=== PATIENT | male | born 1955 | race Caucasian/White ===

== ENCOUNTER 2017-08-02 22:33 | Inpatient (IN) | payer OTHER ==
[~2017-08-02] VITALS: Ht 180.3 cm; Wt 107.5 kg
[2017-08-02 22:40] VITALS: BP 116/79
[2017-08-02] MEDS ORDERED: ORE25 PO (22:48)
[2017-08-02] MEDS ORDERED: AMLO-143 PO (22:48)
[2017-08-02] MEDS ORDERED: WARF3TAB PO (22:48)
--- NOTE | 2017-08-02 23:55 | NUR ---
62Y M BIB SELF C/O CONSTIPATON/CONDOM CATH LEAKING. PT STATE HE HAD HOME HEALTH AID COME AND CARE FOR PT BUT SINCE HIS INSURANCE HAS BEEN CANCELED, NO AID HAD BEEN ARRIVING. PT C/O LEAKING CONDOM CATH, CONDOM CATH WAS CHANGED IN THE ED. PT DOES NOT WANT A INDWELLING URINARY CATHETER PLACED IN PT, ONLY CONDOM CATH. PT CHANGED INTO HOSPITAL GOWN, NO WOUNDS WERE NOTED ON SKIN ASSESSMENT. ER MD DR ROYAL MADE AWARE. 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
[2017-08-03 00:29] LABS: HEMOGLOBIN 17.4 g/dL (12.0-18.0); MEAN CORPUSCULAR HEMOGLOBIN 30 pg (27-31)
[2017-08-03 00:32] LABS: BASOPHILS # (AUTO) 0.3 K/uL (0.00-0.22); BASOPHILS % (AUTO) 2.5 % (0.0-2.0); EOSINOPHILS # (AUTO) 0.2 K/uL (0-0.4); EOSINOPHILS % (AUTO) 1.2 % (0.0-4.0); HEMATOCRIT 51.5 % (36-52); LYMPHOCYTES # (AUTO) 2.2 K/uL (2.0-11.5); LYMPHOCYTES % (AUTO) 17.4 % (20.5-51.1); MEAN CORPUSCULAR HGB CONC 34 g/dL (33-37); MEAN CORPUSCULAR VOLUME 89 fL (80-94); MONOCYTES # (AUTO) 0.7 K/uL (0.8-1.0); MONOCYTES % (AUTO) 5.7 % (1.7-9.3); NEUTROPHILS # (AUTO) 9.4 K/uL (1.8-7.7); NEUTROPHILS % (AUTO) 73.2 % (42.2-75.2); PLATELET COUNT (AUTO) 280 K/uL (140-450); RED BLOOD CELL COUNT(AUTO) 5.77 MIL/uL (4.20-6.10); RED CELL DISTRIBUTION WIDTH 12.5 % (11.6-13.7); WHITE BLOOD COUNT (AUTO) 12.8 K/uL (4.8-10.8)
[2017-08-03 00:37] LABS: APPEARANCE,URINE CLOUDY (CLEAR); BILIRUBIN,URINE NEGATIVE (NEGATIVE); BLOOD, URINE NEGATIVE (NEGATIVE); COLOR,URINE YELLOW (YELLOW); LEUKOCYTE ESTERASE ,URINE NEGATIVE (NEGATIVE); NITRITE, URINE NEGATIVE (NEGATIVE); PH,URINE 8.5 (5.0-9.0); UGLUCOSE NEGATIVE (NEGATIVE)
[2017-08-03 00:41] LABS: ANION GAP 14.3 (8-16); CARBON DIOXIDE 27.3 mmol/L (21-32); CREATININE 0.5 mg/dL (0.7-1.3); POTASSIUM 3.6 mmol/L (3.5-5.1)
[2017-08-03 00:48] LABS: RBC,URINE 0-5 (RARE) /HPF (0-5); WBC,URINE 0-5 (RARE) /HPF (0-5)
[2017-08-03 00:49] LABS: TRIPLE PHOSPHATE CRYSTAL,UR 70-100 /HPF (None Seen)
[2017-08-03 00:49] LABS: ALBUMIN 3.5 g/dL (3.4-5.0); TOTAL BILIRUBIN 0.5 mg/dL (0.0-1.0)
[2017-08-03] MEDS ORDERED: KETOROLAC 30 MG/ML VIAL IVP ONE (00:55)
[2017-08-03] MEDS: LEVOFLOXACIN 500 MG/D5W PREMIX 100 ML IV ONE (00:55)
[2017-08-03] MEDS ORDERED: NACL 0.9% 1,000 ML IV ONE (00:55)
[2017-08-03] MEDS ORDERED: NACL 0.9% 2,500 ML IV ONE (01:05)
--- NOTE | 2017-08-03 01:30 | NUR ---
PT VERBALIZES REFUSAL OF IV TREATMENT, PT STATES HE IS A DNR, AND DOES NOT WANT IV TREATMENT. PT WAS EXPLAINED THE RISK AND BENEFITS OF IV THERAPY AND IV ABX BUT PT STILL REFUSED. PT IS ALERT AND APPROPRIATE AND RESPONDS VERBALLY TO ALL QUESTIONS APPROPRIATELY. PT WAS ADVISED THAT PT LACTIC ACID AND WBC WAS ELEVATED AND IS RELATED TO HIS INFECTION, PAIN, AND WELL-BEING, BUT PT CONTINUES TO REFUSE MEDICAL TX AT THIS TIME. DR ROYAL IS INFORMED OF PT DECISION, DR ROYAL WILL SEE PT AND DISCUSS FURTHER TX IF NECESSARY.
--- NOTE | 2017-08-03 01:45 | NUR ---
DNR COMPLETED BY DR ROYAL. PLACED IN PT CHART
[2017-08-03] MEDS ORDERED: NACL 0.9% 1,000 ML IV SCH (01:51)
[2017-08-03] MEDS ORDERED: MORPHINE SULFATE 2 MG/ML SYR IVP PRN (01:55)
[2017-08-03] MEDS ORDERED: DOCUSATE SODIUM 100 MG GELCAP PO PRN (01:55)
[2017-08-03] MEDS ORDERED: ONDANSETRON 4 MG/2 ML VIAL IM/IVP PRN (01:55)
[2017-08-03] MEDS ORDERED: ACETAMINOPHEN 325 MG TAB PO PRN (01:55)
[2017-08-03 02:15] VITALS: BP 144/82
--- NOTE | 2017-08-03 02:15 | NUR ---
Admitted from ER, with chief complaint of CONSTIPATION X4 DAYS; TAILBONE PAIN. 62 y/o, Male, Uncooperative, AOX4, QUADRIPLEGIC, BEDBOUND/WHEELCHAIR BOUND, ABLE TO VERBALIZE NEEDS. CANT GANG SAWYER IN PLACE. CONDOM CATH IN PLACE, DRAINING WELL. EDEMA NOTED ON HANDS. PT REFUSED IV TREATMENT AND IV ABX DESPITE EDUCATION, DR POTTS AT BEDSIDE, MD AWARE. ALL PT'S BELONGINGS, ELECTRONICS AND WHEELCHAIR AT BEDSIDE WITH PT. oriented to call light, bed, phone,television, bathroom, smoking policy, visiting hours, procedures, ID bracelet on. Belongings list checked. DISCUSSED AND REVIEWED PLAN OF CARE WITH PT, PT UNCOOPERATIVE, WILL NEED TO CONTINUE WITH CONSTANT REINFORCEMENT. ALL NEEDS MET. SAFETY MEASURES ENSURED. CALL LIGHT WITHIN REACH.
--- NOTE | 2017-08-03 02:20 | NUR ---
Patient will be admitted to care of DR. SHAH. Admited to TELE FLOOR. Will go to room 124A . Belongings list completed. Report to OFELIA LINDQUIST.
[2017-08-03 02:25] LABS: BARBITURATE, URINE NEG. ng/ml (NEG <=200); BENZODIAZEPINE, URINE NEG. ng/mL (NEG <=200); CANNABINOID, URINE NEG. ng/mL (NEG <=50); COCAINE, URINE NEG. ng/mL (NEG <=300); OPIATE, URINE NEG. ng/mL (NEG <=2000); PHENCYCLIDINE SCREEN,URINE NEG. ng/mL (NEG <=25)
[2017-08-03 02:34] LABS: CHOL/HDL RATIO 6.2 (1-4.5); HDL CHOLESTEROL 37 mg/dL (40-60); LDL (CALC) 110 mg/dL (60-100); MAGNESIUM 1.9 mg/dL (1.8-2.4); PHOSPHORUS 3.4 mg/dL (2.5-4.9); THYROID STIMULATING HORMONE 0.74 uIU/mL (0.34-3.74); TRIGLYCERIDES 414 mg/dL (30-150)
[2017-08-03] MEDS: MENTHOL/METHYL 10%-15% 114 GM TUBE TP SCH ×3 (02:40→21:00)
[2017-08-03] MEDS ORDERED: BISACODYL 10 MG SUPP RC SCH (02:47)
[2017-08-03] MEDS ORDERED: ECOTRIN 81 MG TABEC PO ONE (02:50)
[2017-08-03] MEDS: guaiFENesin 600 MG TABER PO SCH ×2 (03:24→21:43)
--- NOTE | 2017-08-03 03:24 | NUR ---
PT AGREED TO TAKE DUE MED MUCINEX PO WITH EDUCATION AND DULCOLAX SUPPOSITORY. PT VERBALIZED UNDERSTANDING, TOLERATED MEDS WELL. PT REFUSED TO TAKE NORCO PRN DUE TO CONSTIPATION AND TYLENOL PO STATING THAT IT DOES NOT WORK FOR HIM. PT TURNED AND REPOSITIONED FOR COMFORT, PER DR POTTS, IT IS OK TO GIVE PT'S OWN BENGAY. ALL NEEDS MET. SAFETY MEASURES ENSURED. CALL LIGHT WITHIN REACH.
--- NOTE | 2017-08-03 03:30 | NUR ---
PT REFUSED TO TAKE REMAINING DUE PO MEDS, STATING "I NEED SOMETHING IN STOMACH, I GET NAUSEOUS." PT'S REQUEST TUNA SANDWICH UNABLE AT THIS TIME IN KITCHEN PER NANOTECHNOLOGIST. OFFERED CHICKEN/TURKEY/HAM SANDWICH/JELLO/PUDDING, PT REFUSED, STATING "NO, JUST LET ME SLEEP." CALLED DR POTTS, MADE AWARE.
[2017-08-03] MEDS ORDERED: PSEUDOEPHEDRINE 30 MG TAB ONE (03:47)
[2017-08-03] MEDS ORDERED: LEVOFLOXACIN 500 MG TAB PO SCH ×2 (04:00→09:00)
[2017-08-03] MEDS ORDERED: FUROSEMIDE 40 MG TAB PO SCH (04:00)
[2017-08-03] MEDS: PSEUDOEPHEDRINE 30 MG TAB PO SCH ×3 (04:55→21:43)
--- NOTE | 2017-08-03 05:00 | NUR ---
PT AGREED TO TAKE DUE PO MEDICATION WITH EDUCATION, FED PT WITH KARLO AT THIS TIME. PT YELLING IN PAIN, STATING THAT THE SUPPOSITORY DID NOT WORK, YELLING THAT "I NEED ENEMA." CALLED DR POTTS, MADE AWARE THAT PT WAS ABLE TO TAKE PO MEDS AND PT IS REQUESTING FOR ENEMA DUE TO NOT BEING ABLE TO HAVE BM AFTER SUPPOSITORY. ORDERS PENDING, WILL CARRY OUT.
[2017-08-03] MEDS ORDERED: SODIUM PHOSPHATE 118 ML ENEM RC SCH ×2 (05:35→11:30)
--- NOTE | 2017-08-03 05:40 | NUR ---
PT ABLE TO HAVE SMALL SOFT BROWN BM AT THIS TIME. ADMINISTERED FLEET ENEMA ORDERED. PT REFUSED TO BE CLEANED OR TURNED AT THIS TIME, PT STATED "I DON'T WANT TO BE CLEANED RIGHT NOW, I KNOW I'M GOING TO KEEP GOING, JUST LEAVE ME ALONE, LET ME SLEEP. I'LL CALL WHEN I WANT TO BE CLEANED." ALL NEEDS MET. SAFETY MEASURES ENSURED.
[2017-08-03] MEDS ORDERED: CLINDAMYCIN 150 MG CAP PO SCH (06:00)
--- NOTE | 2017-08-03 07:30 | NUR ---
ENDORSED PLAN OF CARE TO AM NURSE. CONDITION STABLE.
--- NOTE | 2017-08-03 07:50 | NUR ---
ENDORSEMENT RECEIVED FROM AIRCRAFT ENGINE INSTALLER NURSE. PATIENT IS AWAKE, ALERT. RESPIRATION EVEN, UNLABOR ON ROOM AIR. SKIN DRY AND WARM. NO IV DUE TO PATIENT'S REFUSAL PER AIRCRAFT ENGINE INSTALLER. CONDOM CATH IS DRAINING WELL. PATIENT WAS TURNED AND CLEANED. PLAN OF CARE WAS DISCUSSED WITH PATIENT. BED AT LOW POSITION, CALL LIGHT WITHIN REACH, SIDE RAILS UP
[2017-08-03 08:00] VITALS: BP 150/89
--- NOTE | 2017-08-03 08:20 | NUR ---
PATIENT REQUESTED TO BE PLACED IN WHEELCHAIR WITH JEANNE LIFT, WILL NOTIFY MD FOR PT EVAL.
--- NOTE | 2017-08-03 08:58 | NUR ---
PATIENT HAS BEEN SCREENED AND CATEGORIZED HIGH NUTRITION RISK. PATIENT WILL BE SEEN WITHIN 1-2 DAYS OF ADMISSION. 08/03/17-08/04/[address]
[2017-08-03] MEDS ORDERED: ASPIRIN 81 MG TAB.CHEW PO SCH (09:00)
[2017-08-03] MEDS: LACTOBACILLUS RHAMNOSUS GG 1 EACH CAP PO SCH (09:00)
[2017-08-03] MEDS: FUROSEMIDE 20 MG TAB PO SCH (09:00)
[2017-08-03] MEDS: ATORVASTATIN 20 MG TAB PO SCH (09:00)
[2017-08-03] MEDS ORDERED: ATORVASTATIN 20 MG TAB PO SCH (09:00)
--- NOTE | 2017-08-03 09:00 | NUR ---
PATIENT REFUSED TO TAKE MEDS, STATED HE WAS TOO TIRED, AND JUST WANTED TO SLEEP.
[2017-08-03] MEDS ORDERED: LEVOFLOXACIN 750 MG/D5W PREMIX 150 ML IV SCH (10:00)
[2017-08-03] MEDS ORDERED: diphenhydrAMINE 50 MG/ML VIAL IVP ONE (10:05)
[2017-08-03] MEDS ORDERED: HYDRAGUARD CREAM TP PRN (10:05)
[2017-08-03] MEDS ORDERED: amLODIPine 5 MG TAB PO SCH (11:00)
[2017-08-03 12:00] VITALS: BP 134/84
[2017-08-03] MEDS: CLINDAMYCIN 150 MG CAP PO SCH ×3 (12:00→23:55)
--- NOTE | 2017-08-03 12:00 | NUR ---
PATIENT REFUSED TO TAKE MEDS, STATED HIS STOMACH IS SICK. RISKS WERE EXPLAINED TO THE PATIENT.
[2017-08-03] MEDS ORDERED: HYDROCORTISONE 1% OINT 30 GM TUBE TP PRN (12:30)
--- NOTE | 2017-08-03 13:30 | NUR ---
PATIENT WAS TURNED, CLEANED, BM X1 LARGE AMOUNT
[2017-08-03 15:36] VITALS: BP 130/78
--- NOTE | 2017-08-03 15:36 | NUR ---
CM NOTE INITIAL REVIEW FAXED TO [facility] (FAX# [phone]) AND [facility] (FAX# [phone], C: [phone])
--- NOTE | 2017-08-03 16:00 | NUR ---
PATIENT WAS TURNED TO LEFT LATERAL, AND CLEANED. PATIENT STATED "HE WANTED TO WATCH TV, AND HE WANTED TO SWITCH BACK TO REGULAR CALL LIGHT", EXPLAINED TO THE PATIENT THAT MAINTENANCE NEEDED TO BE CALLED, PATIENT BECAME AGITATED AND STARTED SCREAMING AT STAFF.
[2017-08-03] MEDS: WARFARIN 1 MG TAB PO SCH (17:00)
--- NOTE | 2017-08-03 17:15 | NUR ---
PATIENT WAS PLACED ON THE WHEELCHAIR VIA JEANNE LIFT. PATIENT WAS AGITATED, STATED " THE SLEEVE IS NOT THE RIGHT SIZE, I WILL HAVE TO LEAVE TOMORROW IF YOU GUYS CANNOT GET IT RIGHT". EXPLAINED TO THE PATIENT REGARDING THE EQUIPMENT USE.
--- NOTE | 2017-08-03 18:04 | NUR ---
PATIENT COMPLAINED OF HIS WHEELCHAIR NOT WORKING AND REQUESTING MAINTENANCE. EXPLAINED TO THE PATIENT THAT THE HOSPITAL STAFF ARE NOT ALLOWED TO FIX PERSONAL WHEELCHAIR. PATIENT STARTED TO SCREAM AT STAFF, REQUESTING TO LEAVE AMA TOMORROW. Addendum: 08/03/17 at 1807 by Jennie Santacruz RN PATIENT ALSO REFUSED TO TAKE HIS MEDS, AND STATED " I AM NOT TAKING ANYTHING UNTIL MY WHEELCHAIR IS FIXED"
--- NOTE | 2017-08-03 18:45 | NUR ---
CELL PHONE AND OCCUPATIONAL HEALTH NURSE WERE BROUGHT TO THE PATIENT UPON REQUEST. OFFERED TO CALL THE FAMILY FOR THE PATIENT, BUT PATIENT REFUSED. PATIENT STATED "CALL POLICE, CALL FIRE DEPARTMENT, CALL PARAMEDICS TO COME AND FIX THE WHEELCHAIR AND GET ME OUT OF HERE". PATIENT VERBALIZED "I WANT TO BE DISCHARGED EARLY TOMORROW MORNING".
--- NOTE | 2017-08-03 19:23 | NUR ---
ENDORSEMENT GIVEN TO THE MANAGER RAIL NURSE. PATIENT IS STABLE AT THIS TIME.
--- NOTE | 2017-08-03 19:35 | NUR ---
RECEIVED REPORT FROM AM NURSE. PT IS AOX4, QUADRIPLEGIC, BEDBOUND/WHEELCHAIR BOUND, ABLE TO VERBALIZE NEEDS. LICENSED OPTICAL DISPENSER IN PLACE. CONDOM CATH IN PLACE, DRAINING CLEAR DERRICK URINE WELL. EDEMA NOTED ON HANDS AND BLE. ALL PT'S BELONGINGS, ELECTRONICS AND WHEELCHAIR AT BEDSIDE WITH PT. DISCUSSED AND REVIEWED PLAN OF CARE WITH PT, PT UNCOOPERATIVE AT TIMES, WILL NEED TO CONTINUE WITH CONSTANT REINFORCEMENT. PT IS CURRENTLY IN HIS ELECTRONIC WHEELCHAIR AT THIS TIME, ASSISTED PT TO FIX WHEELCHAIR MOBILITY, PT POSITIONED FOR COMFORT, PT IS NOW ABLE TO ROAM AROUND IN HOSPITAL HALLWAYS INDEPENDENTLY WITH STANDBY ASSIST. ALL NEEDS MET. SAFETY MEASURES ENSURED.
[2017-08-03 20:00] VITALS: BP 127/85
--- NOTE | 2017-08-03 20:00 | NUR ---
PT STATED THAT HE WILL GO AMA AT 5AM IN THE MORNING, MD AWARE. DISCUSSED WITH PT IF HE WANTS TO CALL HIS BROTHER, PT STATED "NO, I DON'T WANT TO CALL HIM, I CAN MAKE MY OWN DECISIONS." ASKED HOW PT WILL GO HOME, PT STATED "I'LL TAKE THE BUS." WILL NOTIFY MD.
--- NOTE | 2017-08-03 21:43 | NUR ---
PT AGREED TO TAKE DUE MEDS SUDAFED PO AND MUCINEX PO. PT VERBALIZED UNDERSTANDING, TOLERATED MEDS WELL. PT WAS ALSO FED BY PRODUCE WRAPPER WITH CHALINO LUCERO. UNABLE TO PLACE PT BACK TO BED AT THIS TIME DUE JEANNE LIFT NOT CHARGED. PT UPSET AND C/O PAIN AT THIS TIME DESPITE REASSURANCE THAT PT WILL BE PLACED BACK TO BED WHEN JEANNE LIFT IS CHARGED, PT POSITIONED FOR COMFORT. Addendum: 08/04/17 at 0317 by Ken Turner RN ASSISTED PT WITH ORAL CARE
--- NOTE | 2017-08-03 22:30 | NUR ---
PLACED PT BACK TO BED USING JEANNE LIFT WITH CNAs. PT CLEANED, TURNED AND REPOSITION FOR COMFORT, OFFLOADED PRESSURE AREAS BY CNAs. PT TOLERATED WELL. ALL NEEDS MET. SAFETY MEASURES ENSURED. CALL LIGHT BUTTON WITHIN HEAD'S REACH.
[2017-08-03] MEDS: HYDROcodone/APAP 7.5/325 MG 1 TAB PO PRN (23:56)
[2017-08-04] VITALS (7 sets, daily range): BP systolic 117–163; BP diastolic 60–101
--- NOTE | 2017-08-04 00:01 | NUR ---
PT C/O BACK PAIN, PT AGREED TO TAKE NORCO PO PRN WITH EDUCATION. ADMINISTERED REMAINING DUE MED CLEOCIN PO WITH EDUCATION. ASSISTED PT TO DRINK MORE WATER. PT TURNED AND REPOSITIONED FOR COMFORT, OFFLOADED PRESSURE AREAS. APPLIED PT'S BENGAY TO BACK AND HIPS, DR POTTS AWARE AND OK TO GIVE. ALL NEEDS MET. SAFETY MEASURES ENSURED. CALL LIGHT BUTTON WITHIN HEAD'S REACH.
--- NOTE | 2017-08-04 02:00 | NUR ---
PT TURNED AND REPOSITIONED FOR COMFORT, OFFLOADED PRESSURE AREAS. PT C/O ITCHING, APPLIED HYDROCORTISONE CREAM TO PT'S NOSE. ALL NEEDS MET. SAFETY MEASURES ENSURED. CALL LIGHT BUTTON WITHIN HEAD'S REACH.
--- NOTE | 2017-08-04 04:05 | NUR ---
PT TURNED AND REPOSITIONED FOR COMFORT, OFFLOADED PRESSURE AREAS. ALL NEEDS MET. SAFETY MEASURES ENSURED. CALL LIGHT BUTTON WITHIN HEAD'S REACH.
[2017-08-04] MEDS: CLINDAMYCIN 150 MG CAP PO SCH ×4 (06:30→23:45)
--- NOTE | 2017-08-04 06:30 | NUR ---
ADMINISTERED DUE MED CLEOCIN PO WITH EDUCATION. PT UNCOOPERATIVE BUT AGREED TO TAKE MEDS. PT TURNED AND REPOSITIONED FOR COMFORT, OFFLOADED PRESSURE AREAS. CONDOM CATH REPLACED. ALL NEEDS MET. SAFETY MEASURES ENSURED. CALL LIGHT BUTTON WITHIN HEAD'S REACH.
--- NOTE | 2017-08-04 07:20 | NUR ---
Patient is quadriplegic. +1 pitting edema noted to BLE. No IV in place, patient refused to have line in place. Skin is intact. Condom catheter in place draining clear, yellow urine. Patient is on tele monitoring, bed in low position, call light within reach. Will continue to monitor.
--- NOTE | 2017-08-04 07:20 | NUR ---
ENDORSED PLAN OF CARE TO AM NURSE. CONDITION STABLE.
--- NOTE | 2017-08-04 07:20 | NUR ---
Received patient report at bedside. Patient awake and alert with no s/s of distress. Patient on RA no SOB.
--- NOTE | 2017-08-04 08:00 | NUR ---
Patient turned and repositioned for comfort.
--- NOTE | 2017-08-04 08:30 | NUR ---
PLAN TO HAVE SKIN ASSESSMENT DUE TO LOW SAMMIE SCORE. PT IS AGITATED AND EXPLAINED RISK AND BENEFITS FOR PRESSURE ULCER PREVENTION, PT. ONLY WANT WOUND CARE NURSE TO PLACE HAND ROLLS TO BOTH HANDS WHICH DONE BY WOUND CARE NURSE TO BOTH HANDS AND RIGHT HAND WAS ELEVATED WITH A PILLOW PER PT REQUEST. WHILE REAPPLY HEEL RAISERS TO BILATERAL HEELS PT . STARTED TO COMPLAIN THAT THE DEVICES IS NOT HELPING AND REFUSED TO WEAR IT, RISK AND BENEFITS EXPLAINED AGAIN AND PT DISAGREE WITH IT. PUMP PROVIDED FOR PRESSURE REDISTRIBUTION SURFACE THERAPY, PT STATED " I DON'T NEED IT. IT HURT MY BACK" RISK AND BENEFITS EXPLAINED AGAIN FOR THE 3RD TIMES. AND PT SHOUT IT OUT LOUD " YOU GUYS ARE NOT DOING THINGS RIGHT HERE, THE CALL LIGHTS WAS SO LOUD ALL NIGHT LONG, I WANT TO SIGN AMA", EXPLAINED TO PT THIS IS A HOSPITAL, OTHER PT. USE CALL LIGHTS TO ASK FOR HELP. ABOVE INFORMATION REPORT TO CN.
[2017-08-04] MEDS: HYDRAGUARD CREAM TP SCH (09:00)
[2017-08-04] MEDS: ATORVASTATIN 20 MG TAB PO SCH ×2 (09:00→09:19)
[2017-08-04] MEDS: MENTHOL/METHYL 10%-15% 114 GM TUBE TP SCH ×2 (09:00→20:57)
[2017-08-04] MEDS: FUROSEMIDE 20 MG TAB PO SCH (09:15)
[2017-08-04] MEDS: LACTOBACILLUS RHAMNOSUS GG 1 EACH CAP PO SCH (09:16)
[2017-08-04] MEDS: amLODIPine 5 MG TAB PO SCH (09:16)
[2017-08-04] MEDS: LEVOFLOXACIN 750 MG TAB PO SCH (09:17)
[2017-08-04] MEDS: HYDROCHLOROTHIAZIDE 25 MG TAB PO SCH (09:17)
[2017-08-04] MEDS: guaiFENesin 600 MG TABER PO SCH ×2 (09:18→20:55)
[2017-08-04] MEDS: PSEUDOEPHEDRINE 30 MG TAB PO SCH ×2 (09:24→20:55)
--- NOTE | 2017-08-04 10:00 | NUR ---
Patient turned and repositioned for comfort.
--- NOTE | 2017-08-04 11:09 | NUR ---
ENTRY FOR 08/03/17 1200 PT'S BROTHER KIMMY PROVIDED INFORMATION ON A FACILITY WHO HAD BEEN WORKING WITH PT FOR PLACEMENT. PLACED CALL TO [facility] [phone] AND SPOKE WITH CARLITO WHO IDENTIFIED HIMSELF THE JUNIOR ACCOUNTANT BOOKKEEPER OF THE FACILITY. CARLITO STATED THAT THE FACILITY IS A 6 BED [facility]. STATED THAT HE HAD BEEN ASSISTING PT FOR ADMISSION TO THE FACILITY AND HAD BEEN SPEAKING WITH [facility] ON PTS BEHALF TO OBTAIN A LETTER OF AGREEMENT TO ADMIT PT. STATED THE PROCESS WAS STOPPED WHEN PT WAS DISCHARGED FROM [facility]. 1230 MET WITH PT AT BEDSIDE AND DISCUSSED HIS PLAN FOR DISCHARGE IF A LETTER OF AGREEMENT CANNOT BE DONE AND HE INSISTED THAT [facility] WOULD PAY FOR THE FACILITY. EXPLAINED TO HIM THAT AT THIS TIME HIS NEEDS WOULD BE FDC AND THAT IF [facility] DID NOT DO AN KAYA HE MAY NEED TO GO TO SNF AND THAT [facility] IS MCAL IN [facility]. PT INSISTED THAT THIS INDUSTRIAL RELATIONS COUNSELOR COULD JUST CALL AND HAVE HIS MCAL CHANGED TO [facility]. EXPLAINED THAT IT DOES TAKE SOME TIME AND THAT HE WOULD NEED TO INITIATE THE PROCESS AND AT THIS TIME HE DOES NOT HAVE A RESIDENCE IN [facility]. PT WOULD NOT ELABORATE WHERE HE STAYS BUT THEN DID SAY THAT HE GOES TO DIFFERENT FACILITIES AND SOMETIMES STAYS IN HOTELS. ASKED WHO PROVIDED HIM CARE SINCE HE IS NOT INDEPENDENT AND HE STATED THAT HE WOULD HIRE CAREGIVERS OUT OF THE NEWSPAPER. PT WAS NOT ABLE TO PROVIDE AN ALTERNATE DISCHARGE PLAN AND WAS VERY ADAMANT THAT HE WOULD NOT GO TO A FACILITY IN [facility]. PT PROVIDED THE NAME KUNAL WHO HE IDENTIFIED A WORKER AT [facility] WHO HAD BEEN ASSISTING HIM WITH PLACEMENT AND HE PROVIDED PHONE NUMBER [phone]. THEN MET WITH KIMMY PT'S BROTHER WHO CONFIRMED THAT PT IS HOMELESS AND GOES FROM FACILITY TO FACILITY AND AT TIMES SIGNS OUT AMA. KIMMY IMPLIED THAT PT DOES NOT WANT HIM TO INTERFERE WITH WHAT HE DOES AND DURING CONVERSATION WITH PT HE DID INDICATE THAT HE DID NOT WANT HIS BROTHERS INVOLVEMENT.
--- NOTE | 2017-08-04 12:00 | NUR ---
Patient given sponge bath on bed. Patient turned and repositioned for comfort.
--- NOTE | 2017-08-04 13:28 | NUR ---
1320 CALL PLACED TO KUNAL AT [facility] [phone] GIVEN BY PT. NUMBER WAS NOT FOR KUNAL BUT WAS GIVEN NUMBER [phone] AND PHONE WAS FOR KUNAL. PER KUNAL SHE DOES NOT WORK FOR [facility] BUT WORKS FOR [employer]. PER KUNAL SHE HAD TALKED TO CARLITO AT THE [facility] AND INFORMED HIM THAT [facility] NEEDED TO DO KAYA AND NOT IPA AND THAT SHE THOUGHT THAT PT HAD DISCHARGED FROM [facility] TO THE FACILITY AND WAS NOT AWARE THAT HE HAD BEEN ADMITTED TO [facility]. PER KUNAL SHE DID RECEIVE A CALL FROM SOMEONE IDENTIFYING HIMSELF MINOO AND THE PT'S POA AND HE HAD INSISTED THAT SHE GET PT TRANSFERRED TO [facility] AND SHE INFORMED MINOO SHE COULD NOT PROVIDE INFORMATION WITHOUT VERIFYING IF HE WAS INDEED POA. CALL PLACED TO CARLITO AT [facility] TO FOLLOW UP REGARDING WHO HE HAD BEEN SPEAKING WITH AT [facility] LEFT HIM VM REQUESTING CALL BACK.
--- NOTE | 2017-08-04 14:00 | NUR ---
Patient turned and repositioned for comfort. Patient requested for enema. Dr Proctor notified.
--- NOTE | 2017-08-04 14:30 | NUR ---
08/04/2017 RD INITIAL ASSESSMENT COMPLETED PLEASE REFER TO NUTRITION ASSESSMENT UNDER CARE ACTIVITY FOR ESTIMATED NUTRITIONAL NEEDS. REGISTERED DIETITIAN TO PROVIDE FOOD/MEDICATION INTERACTION INFORMATION (COMPLETED) RD TO FOLLOW-UP IN 2-3 DAYS PATIENT IS HIGH RISK. [address]BY [address]CEO RD
--- NOTE | 2017-08-04 15:59 | NUR ---
1400 SPOKE WITH CARLITO AT [facility] AND HE STATED THAT HE HAD BEEN NEGOTIATING DAILY RATES WITH A WORKER AT [facility] BUT NEVER RECEIVED A CALL BACK. REQUESTED THAT HE MAKE CONTACT AGAIN PT STILL IS HOPING TO GO TO HIS FACILITY. [facility]AY SAID HE WILL TRY TO MAKE CONTACT. 1500 CALLED MINOO SUTTON [phone] WHO LEFT REQUESTING A CALL BACK AND IDENTIFIED HIMSELF PT'S POA. PER MINOO HE IS AWARE OF PT'S DESIRE TO GO TO THE [facility]. EXPLAINED TO HIM THAT THE COST OF THE FACILITY IS BETWEEN [facility] AND [facility] AT THE FACILITY AND HE STATED HE UNDERSTOOD. MINOO DID EMAIL A COPY OF PT'S POW AND HE IS LISTED THE AGENT. COPY PROVIDED TO ADMITTING AND ONE PLACED IN PTS CHART. HAD MET WITH PT AT BEDSIDE TO UPDATE HIM ON MY CONVERSATION WITH [facility] AND PT DEMANDING THAT HE GO TO [facility]. EXPLAINED TO PT THAT IT IS BETWEEN [facility] AND [facility] AND THAT THERE IS A CHANCE THAT IT MAY NOT BE AUTHORIZED AND THAT A SNF MAY BE AN ALTERNATE PLAN. PT REQUESTING THAT DCM CONTACT [facility] REGARDING THIS ISSUE AND ABOUT CHANGING HIS MCAL TO ANOTHER [facility], EXPLAINED TO HIM THAT IT IS NOT SIMPLE MAKING A PHONE CALL AND ASKED IF HIS BROTHER COULD ASSIST WITH THE PROCESS AND PT BECAME ANGRY AND BEGAN RAMBLING ABOUT HIS BROTHER NOT HELPING AND DCM NOT DOING ANYTHING FOR HIM AND EVENTUALLY TOLD DCM TO GET OUT AND NOT COME BACK. PT ALSO CURSING AND YELLING.
--- NOTE | 2017-08-04 16:50 | NUR ---
Patient transfered from bed to wheelchair using the sumi lift per patient request. Patient Awake and alert, no s/s of distress.
[2017-08-04] MEDS: WARFARIN 1 MG TAB PO SCH (17:56)
--- NOTE | 2017-08-04 18:15 | NUR ---
FAXED CONCURRENT REVIEW TO [facility] [phone]
--- NOTE | 2017-08-04 19:23 | NUR ---
Patient report given at bedside. Patient endorsed in stable condition.
--- NOTE | 2017-08-04 19:25 | NUR ---
RECEIVED FROM AM NURSE AWAKE AND ALERT. NO SOB. VERBALIZING WELL. TELEMETRY MONITORING. USES CALL LIGHT FOR HELP A LOT. NEEDS WILL BE ANTICIPATED AND WILL BE MET. TOTAL CARE. HX. QUADRIPLEGIA. C/O CONSTIPATION. PT. NOTED ABLE TO HAVE BM YESTERDAY PER AM RN.
--- NOTE | 2017-08-05 00:20 | NUR ---
PT. NEEDS ATTENDED TO AND MET. USES CLL LIGHT FOR HELP. TOTAL CARE. NO COMPLAINTS AT THIS TIME.
[2017-08-05 04:00] VITALS: BP 130/78
--- NOTE | 2017-08-05 04:31 | NUR ---
PT. TURNED TO SIDES Q 2H. ABLE TO VERBALIZE NEEDS WELL. USES CALL LIGHT FOR HELP. PT. AM PERSONAL HYGIENE RENDERED BY CNAS. PILLOW SUPPOPRT TO PRESSURE AREAS. TELEMETRY MONITORING.
[2017-08-05 07:09] LABS: BASOPHILS # (AUTO) 0.3 K/uL (0.00-0.22); BASOPHILS % (AUTO) 3.6 % (0.0-2.0); EOSINOPHILS # (AUTO) 0.3 K/uL (0-0.4); EOSINOPHILS % (AUTO) 3.2 % (0.0-4.0); HEMATOCRIT 47.8 % (36-52); HEMOGLOBIN 16.2 g/dL (12.0-18.0); LYMPHOCYTES # (AUTO) 2.6 K/uL (2.0-11.5); LYMPHOCYTES % (AUTO) 28.9 % (20.5-51.1); MEAN CORPUSCULAR HEMOGLOBIN 30 pg (27-31); MEAN CORPUSCULAR HGB CONC 34 g/dL (33-37); MEAN CORPUSCULAR VOLUME 90 fL (80-94); MONOCYTES # (AUTO) 0.8 K/uL (0.8-1.0); MONOCYTES % (AUTO) 8.5 % (1.7-9.3); NEUTROPHILS # (AUTO) 4.9 K/uL (1.8-7.7); NEUTROPHILS % (AUTO) 55.8 % (42.2-75.2); PLATELET COUNT (AUTO) 251 K/uL (140-450); RED BLOOD CELL COUNT(AUTO) 5.34 MIL/uL (4.20-6.10); RED CELL DISTRIBUTION WIDTH 12.5 % (11.6-13.7); WHITE BLOOD COUNT (AUTO) 8.9 K/uL (4.8-10.8)
--- NOTE | 2017-08-05 07:25 | NUR ---
RECEIVED PATIENT REPORT AT BEDSIDE FROM NIGHTSHIFT NURSE. PATIENT IS IN SUPINE POSITION. PATIENT IS ASLEEP AT THIS TIME BUT AROUSABLE TO NAME. PATIENT DOES NOT WANT TO BE BOTHER. PATIENT'S BREATHING IS UNLABORED AND SYMMETRICAL. PATIENT DOES NOT COMPLAIN OF ANY PAIN. UPDATED BOARD AND MADE SURE CALL LIGHT IS WITHIN REACH. PATIENT HAS A CONDOM CATHETER ON AT THIS TIME. WILL CONTINUE TO MONITOR PATIENT.
[2017-08-05 07:33] LABS: PROTHROMBIN TIME 17.6 secs (10.8-13.4)
[2017-08-05 07:40] LABS: ANION GAP 14.8 (8-16); CARBON DIOXIDE 26.5 mmol/L (21-32); CREATININE 0.2 mg/dL (0.7-1.3); POTASSIUM 3.3 mmol/L (3.5-5.1)
[2017-08-05 07:48] LABS: MAGNESIUM 1.9 mg/dL (1.8-2.4); PHOSPHORUS 3.1 mg/dL (2.5-4.9)
[2017-08-05 08:00] VITALS: BP 138/81
[2017-08-05] MEDS: HYDRAGUARD CREAM TP SCH (09:00)
[2017-08-05] MEDS: MENTHOL/METHYL 10%-15% 114 GM TUBE TP SCH ×2 (09:00→21:00)
[2017-08-05] MEDS: HYDROCHLOROTHIAZIDE 25 MG TAB PO SCH (09:00)
[2017-08-05] MEDS: PSEUDOEPHEDRINE 30 MG TAB PO SCH ×2 (09:00→21:00)
[2017-08-05] MEDS: guaiFENesin 600 MG TABER PO SCH ×2 (09:55→21:00)
[2017-08-05] MEDS: ATORVASTATIN 20 MG TAB PO SCH (09:55)
[2017-08-05] MEDS: LACTOBACILLUS RHAMNOSUS GG 1 EACH CAP PO SCH (09:55)
[2017-08-05] MEDS: LEVOFLOXACIN 750 MG TAB PO SCH (09:56)
[2017-08-05] MEDS: CLINDAMYCIN 150 MG CAP PO SCH ×3 (09:57→18:24)
--- NOTE | 2017-08-05 10:00 | NUR ---
PATIENT IS ASLEEP AT THIS TIME. NO COMPLAINTS OF PAIN. NO SIGNS OF RESPIRATORY DISTRESS OR RESPIRATORY DEPRESSION. PATIENT ABLE TO CALL IF HE NEEDS HELP WITH ANYTHING.
[2017-08-05] MEDS: FUROSEMIDE 20 MG TAB PO SCH (10:01)
[2017-08-05] MEDS: amLODIPine 5 MG TAB PO SCH ×2 (10:02→10:24)
[2017-08-05 12:00] VITALS: BP 113/68
--- NOTE | 2017-08-05 12:10 | NUR ---
PATIENT IS RESTING IN BED. PATIENT HAS NO COMPLAINTS OF PAIN AT THIS TIME. BREATHING WITHIN NORMAL LIMITS. WILL CONTINUE TO MONITOR PATIENT
--- NOTE | 2017-08-05 13:42 | NUR ---
TURNED PATIENT WITH ASSISTANCE OF RETORT PRESS OPERATOR. PROVIDED TOTAL CARE FOR PATIENT'S HYGIENE NEEDS. PATIENT'S BREATHING IS WITHIN NORMAL LIMITS. NO COMPLAINTS OF PAIN FROM PATIENT. WILL CONTINUE TO MONITOR PATIENT.
[2017-08-05] MEDS ORDERED: POTASSIUM CHLORIDE 10 MEQ TABER PO SCH (14:58)
[2017-08-05 16:00] VITALS: BP 133/83
[2017-08-05] MEDS ORDERED: WARFARIN 5 MG TAB PO SCH (17:00)
--- NOTE | 2017-08-05 17:40 | NUR ---
GAVE PATIENT ENEMA WHILE LYING IN LEFT LATERAL POSITION. CASH SHORTAGE INVESTIGATOR HELPED TURN PATIENT AND CLEAN HIM. INSTRUCTED PATIENT TO HOLD THE ENEMA FOR 15 MINUTES.
--- NOTE | 2017-08-05 18:22 | NUR ---
OFFERED MEDICATIONS TO PATIENT BUT HE REFUSED. PATIENT SAYS, "I AM TRYING TO HAVE A BOWEL MOVEMENT".
--- NOTE | 2017-08-05 19:25 | NUR ---
GAVE REPORT TO NIGHTSHIFT NURSE AT BEDSIDE. ENDORSED ALL CARE TO NIGHTSHIFT NURSE. PATIENT IS IN STABLE CONDITION.
--- NOTE | 2017-08-05 19:37 | NUR ---
RECEIVED IN BED. AWAKE AND ALERT. ASSISTED WITH ADLS AND CARE PLANS FOR THE NIGHT DISCUSSED WITH HIM. CALL LIGHT WITH IN REACH. NOTED PT. WANTS TO BE ATTENDED TO Q 15 MINUTES OR LESS. NEEDS WILL BE ATTENDED TO AND WILL BE MET. PT. WILL BE TURNED Q 2H AND PILLOW SUPPORT TO PRESSURE AREAS WILL BE PROVIDED. TELEMETRY MONITORING. AFEBRILE. FOR SMALL BOWEL THROUGH TONIGHT ORDERED. BEEN NPO FOR THE DAY ORDERED. PT. ABLE TO VERBALIZE NEEDS WELL.
[2017-08-05 19:55] VITALS: BP 130/80
[2017-08-05] MEDS ORDERED: SODIUM PHOSPHATE 118 ML ENEM RC SCH (21:00)
--- NOTE | 2017-08-05 22:08 | NUR ---
PT. REFUSED TO HAVE SMALL BOWEL THROUGH PROCEDURE . EXPLAINED TO HIM THAT H E CAN NOT EAT AT ALL FOR NOW RT MD NEEDS TO BE SURE THAT HE HAS NO OBSTRUCTION. PT. AGREED INSTEAD TO HAVE KUB .
--- NOTE | 2017-08-05 23:03 | NUR ---
PT. TURNED TO SIDES AND POSITIONED COMFORTABLY BY CNAS Q 2H AND REQUESTED BY PT. PRN. PT. ABLE TO USE CALL LIGHT . VERBALIZES WELL.
[2017-08-05 23:58] VITALS: BP 134/82
--- NOTE | 2017-08-06 00:04 | NUR ---
PT. REFUSING P.O. MEDICATION RT " I AM NOT ALLOWED TO EAT, I WILL NOT TAKE MEDICATION UNTIL I CAN EAT " PT. A/O X 4. VERBALIZES WELL SIMPLE NEEDS. TELEMETRY MONITORING. CALL LIGHT WITH IN REACH. PT. TURNED FREQUENTLY AT LEAST EVERY 1 TO 2 HOURS. PILLOW SUPPPORT TO PRESSURE AREAS.
--- NOTE | 2017-08-06 00:09 | NUR ---
RESIDENT MD VALLE MADE AWARE OF PT. REFUSING P.O. MEDICATIONS RT NPO . PER PT. UNLESS THEY ALLOW HIM TO EAT THE HE WILL NOT TAKE ANY P.O.
[2017-08-06 01:53] VITALS: BP 159/89
--- NOTE | 2017-08-06 01:59 | NUR ---
PT. AT THIS TIME REQUESTING FOR PAIN RELIEVER . INFORMED HIM THAT IT IS NORCO AND SWALLOWED. "IT IS OK" WILL MEDICATE REQUESTED. VERBALIZES WELL.
[2017-08-06] MEDS: HYDROcodone/APAP 7.5/325 MG 1 TAB PO PRN ×2 (03:01→18:11)
[2017-08-06 04:35] VITALS: BP 123/70
[2017-08-06] MEDS: CLINDAMYCIN 150 MG CAP PO SCH ×4 (05:52→18:02)
--- NOTE | 2017-08-06 07:10 | NUR ---
PT. SLEEPING AT THIS TIME. TURNED Q 2H BY CNAS BUT MOST OF TIME TURNED Q 30 MINUTES TO 1 HOUR. NEEDS ATTENDED.
--- NOTE | 2017-08-06 07:20 | NUR ---
RECEIVED BEDSIDE REPORT FROM REPORTING MANAGER NURSE. PATIENT SHOWS NO S/S OF RESPIRATORY DISTRESS, ROOM AIR, NO COMPLAINTS AT THE TIME. BED IN LOW POSITION. WILL CONTINUE TO MONITOR.
[2017-08-06 08:00] VITALS: BP 156/83
[2017-08-06] MEDS: ATORVASTATIN 20 MG TAB PO SCH (09:00)
[2017-08-06] MEDS: HYDRAGUARD CREAM TP SCH (09:00)
--- NOTE | 2017-08-06 09:00 | NUR ---
Patient turned to L side for comfort measures. No s/s of distress on RA. Will continue to monitor patient.
[2017-08-06] MEDS: HYDROCHLOROTHIAZIDE 25 MG TAB PO SCH (09:44)
[2017-08-06] MEDS: FUROSEMIDE 20 MG TAB PO SCH (09:44)
[2017-08-06] MEDS: LEVOFLOXACIN 750 MG TAB PO SCH (09:46)
[2017-08-06] MEDS: guaiFENesin 600 MG TABER PO SCH ×2 (09:47→21:22)
[2017-08-06] MEDS: PSEUDOEPHEDRINE 30 MG TAB PO SCH ×2 (09:47→21:22)
[2017-08-06] MEDS: MENTHOL/METHYL 10%-15% 114 GM TUBE TP SCH ×2 (09:48→21:23)
[2017-08-06] MEDS: LACTOBACILLUS RHAMNOSUS GG 1 EACH CAP PO SCH (09:51)
--- NOTE | 2017-08-06 11:12 | NUR ---
Pt turned to R side for comfort. Current watching TV, awake, alert and oriented. No complaints at the moment. Will continue to monitor patient.
--- NOTE | 2017-08-06 12:20 | NUR ---
08/06/17 RD FOLLOW UP COMPLETED PLEASE REFER TO NUTRITION PROGRESS NOTE UNDER CARE ACTIVITY FOR ESTIMATED NUTRITION NEEDS. RD RECOMMENDATIONS: 1.D/C CARDIAC DIET DUE TO PATIENT REQUEST. 2.START 2 GM SODIUM DIET. 3.RD WILL F/U 3-5 DAYS; MODERATE RISK. DARLENE FIELD, , RDN
--- NOTE | 2017-08-06 13:00 | NUR ---
Patient turned to L side for comfort. No s/s of distress. Patient condom catheter came off and patient refused a new condom catheter. Bed linens and chucks changed. Patient refused to eat lunch because he does not like the food, I left a message with dietary for a tuna sandwich. Gave patient cranberry and apple juice as requested. Patient watching tv, bed in low position, call light within reach. Will continue to monitor.
[2017-08-06 13:10] VITALS: BP 139/81
--- NOTE | 2017-08-06 15:00 | NUR ---
Patient turned to R side for comfort. Patient is alert, awake, and oriented. Bed in low position, will continue to monitor.
[2017-08-06 16:00] VITALS: BP 122/89
[2017-08-06] MEDS ORDERED: WARFARIN 5 MG TAB PO SCH (17:00)
--- NOTE | 2017-08-06 17:00 | NUR ---
Patient is awake and alert. Patient transferred from bed to electric wheelchair with the use of the sumi lift. No s/s of distress. Patient is on wheelchair with seat belt, he is planning on going around the turner with his wheelchair. Will continue to monitor patient.
--- NOTE | 2017-08-06 19:30 | NUR ---
RECEIVED FROM AM RN SITTING IN WHEELCHAIR AWAKE AND ALERT. TALKING WITH VISITOR /BROTHER. CALL LIGHT WITH IN REACH. NO SOB. TELEMETRY MONITORING. PT. TURNED Q 2H OR PRN PT. CALLS WHICH IS AT LEAST EVERY 15 MINUTES TO 1 HOUR IF AWAKE. ALL NEEDS ATTENDED TO. PT. WITH JEANNE LIFT INSIDE ROOM FOR TRANSFER FROM WHEELCHAIR TO BED AT ALL TIMES.
--- NOTE | 2017-08-06 19:38 | NUR ---
Patient on wheelchair in his room with his brother. No s/s of distress, awake, alert and oriented. Report given to casino shift manager nurse, patient is endorsed stable.
[2017-08-06 20:29] VITALS: BP 130/84
--- NOTE | 2017-08-06 22:21 | NUR ---
BROTHER STILL AT BEDSIDE VISITING. NO PAIN COMPLAINTS DONE AT THIS TIME. CALL LIGHT WITH IN REACH. ALL P.O. MEDICATIONS TAKEN.
--- NOTE | 2017-08-06 23:41 | NUR ---
PT. SLEEPING AT THIS TIME. BEEN BACK TO BED REQUESTED. TOTAL CARE. CALL LIGHT WITH IN REACH AT ALL TIMES. JEANNE LIFT USED TO TRANSFER PT. FROM BED TO WHEELCHAIR . TURNED Q 2H AND PER PT. REQUEST. PT. MOSTLY RESTLESS WHEN AWAKE AND WANTS TO BE REPOSITIONED MOST OF THE TIME. NEEDS ARE ANTICIPATED AND MET.
[2017-08-07] MEDS: CLINDAMYCIN 150 MG CAP PO SCH ×4 (00:06→18:04)
[2017-08-07 00:38] VITALS: BP 154/74
--- NOTE | 2017-08-07 01:05 | NUR ---
AWAKE AT THIS TIME. TURNED BY CNAS. PT. EATING AT THIS TIME A SANDWICH. TOTAL CARE. OUTGOING INSPECTOR FEEDING HIM. GOOD AFFECT. WATCHING TV AND TALKING WITH OUTGOING INSPECTOR WHILE BEING FED.
--- NOTE | 2017-08-07 03:00 | NUR ---
PT. STILL AWAKE AT THIS TIME. LIGHT SLEEPER. WAKES UP EASILY . CALLS FOR HELP AND ABLE TO VERBALIZE SIMPLE NEEDS AT ALL TIMES. NEEDS MADE SURE ATTENDED TO. PT. CONTENT WITH HELP EXTENDED TO HIM. WATCHING TV. TOTAL CARE. QUADRIPLEGIC. HX. TUNG GONZALEZ"S DSE. AND STROKE. TELEMETRY MONITORING.
[2017-08-07 04:00] VITALS: BP 143/73
--- NOTE | 2017-08-07 04:47 | NUR ---
SLEEPING AT THIS TIME. TELEMETRY MONITORING. NO SOB. FLACC 0-. CALL LIGHT WITH IN REACH.
--- NOTE | 2017-08-07 05:45 | NUR ---
AWAKE. TURNED BY PT AGAIN REQUESTED. KEPT COMFORTABLE AND DRY. ABLE TO VERBALIZE IF HE GOES BM OR URINATE.
--- NOTE | 2017-08-07 06:41 | NUR ---
PT. WOKE UP AND TURNED TO SIDES. PILLOW SUPPORT RE ADJUSTED REQUESTED. APPLIED KNEES WITH BENGAY CREAM REQUESTED. TELEMETRY MONITORING.
--- NOTE | 2017-08-07 07:30 | NUR ---
RECEIVED FROM STATE WILDLIFE OFFICER RN. PT IS AWAKE AND ALERT, OX4. NO S/S OF ACUTE DISTRESS. NO IV ACCESS. DENIES PAIN. PT IS ON TELE MONITOR. CALL LIGHT IS WITHIN REACH. ALL SAFETY PRECAUTIONS MET. WILL CONTINUE TO MONITOR.
[2017-08-07 08:00] VITALS: BP 136/68
--- NOTE | 2017-08-07 09:00 | NUR ---
TURNED PT TO LEFT SIDE.
[2017-08-07] MEDS: amLODIPine 5 MG TAB PO SCH (09:45)
[2017-08-07] MEDS: HYDROCHLOROTHIAZIDE 25 MG TAB PO SCH (09:46)
[2017-08-07] MEDS: LACTOBACILLUS RHAMNOSUS GG 1 EACH CAP PO SCH (09:46)
[2017-08-07] MEDS: PSEUDOEPHEDRINE 30 MG TAB PO SCH ×2 (09:46→20:53)
[2017-08-07] MEDS: FUROSEMIDE 20 MG TAB PO SCH (09:46)
[2017-08-07] MEDS: ATORVASTATIN 20 MG TAB PO SCH (09:46)
[2017-08-07] MEDS: guaiFENesin 600 MG TABER PO SCH ×2 (09:46→20:53)
[2017-08-07] MEDS: LEVOFLOXACIN 750 MG TAB PO SCH (09:47)
--- NOTE | 2017-08-07 11:05 | NUR ---
TURNED PT TO LEFT SIDE. Addendum: 08/08/17 at 1012 by Jason Piña RN TURNED PT TO RIGHT SIDE FACING THE DOOR.
[2017-08-07 12:00] VITALS: BP 128/81
--- NOTE | 2017-08-07 12:35 | NUR ---
BED BATH GIVEN. NO S/S OF DISTRESS. HYDRAGUARD APPLIED TO THE BOTTOM. MUSCLE RUB APPLIED TO BACK AND TAILBONE. ORAL CARE GIVEN. PT WAS SHAVED. TRANSFER PT TO WHEELCHAIR WITH JEANNE LIFT. PT TOLERATED WELL.
[2017-08-07] MEDS: HYDRAGUARD CREAM TP SCH (12:45)
[2017-08-07] MEDS: MENTHOL/METHYL 10%-15% 114 GM TUBE TP SCH ×2 (12:46→20:55)
--- NOTE | 2017-08-07 13:55 | NUR ---
CHARAN NOTE CLINICAL INFORMATION FAXED TO [facility] (FAX# [phone], C: [phone]). PER DARLING FROM [facility], ONCE INFORMATION IS RECEIVED, THEY WILL START SEARCHING FOR PLACEMENT. Addendum: 08/07/17 at 1450 by Ed Montes RN CLINICAL INFORMATION FAXED TO CHARAN BONILLA FOR [facility] (FAX# [phone])
--- NOTE | 2017-08-07 14:00 | NUR ---
FED PT TUNA SANDWICH AND SUNCHIP. PT TOLERATED WELL.
--- NOTE | 2017-08-07 15:00 | NUR ---
ADJUST PT 'S SITTING POSITION. NO ACUTE DISTRESS. PT TOLERATED WELL.
--- NOTE | 2017-08-07 15:50 | NUR ---
PHYSICAL THERAPY CO-SIGN The Physical Therapy Progress Notes documented by Waste Paper Hammermill Operator have been reviewed. Reviewed/Co-Signed by: Laxmi Christiansen PT Documentation Done by: ROMERO GIPSON PTA [place] EMPHASIZED ON EXERCISE, PT WAS UP IN W/C TRANSFERRED BY NRSG ALREADY. FROM BED HUDDLE PT WANTS A JEANNE SLING WHICH HAS S HOLE FOR THE COMMODE TRANSFERS WHICH IS NOT PRESENT IN THE HOSPITAL AND PT IS AWARE. Addendum: 08/08/17 at 0852 by Laxmi Christiansen PT Amended: Links added.
[2017-08-07 16:00] VITALS: BP 128/82
--- NOTE | 2017-08-07 16:10 | NUR ---
PT HAS BEEN EVALUATED BY PSYCH
[2017-08-07 17:29] LABS: PROTHROMBIN TIME 19.9 secs (10.8-13.4)
--- NOTE | 2017-08-07 17:40 | NUR ---
ADJUSTED PT'S SITTING POSITION. PT TOLERATED WELL. NO SOB.
[2017-08-07] MEDS ORDERED: WARFARIN 1 MG TAB PO SCH (18:00)
--- NOTE | 2017-08-07 19:40 | NUR ---
ENDORSED PT TO DAY SHIFT NURSE. PT IN STABLE CONDITION.
--- NOTE | 2017-08-07 19:41 | NUR ---
RECEIVED PT FROM DAY SHIFT NURSE TOMMIE-RN. ASSISTED RN WITH TRANSFERRING PT BACK INTO BED. AOX4, QUADRIPLEGIC, TOTAL CARE. CONDOM CATHETER IN PLACE. ON ROOM AIR. NO IV LINE. SKIN INTACT. DNR. CALL LIGHT WITHIN REACH. BED IN LOWEST POSITION. WILL CONTINUE TO MONITOR.
[2017-08-07 20:00] VITALS: BP 119/86
[2017-08-07] MEDS: HYDROcodone/APAP 7.5/325 MG 1 TAB PO PRN (20:54)
--- NOTE | 2017-08-07 21:00 | NUR ---
MEDICATIONS TOLERATED WELL IN APPLE SAUCE. STUDENT NURSE ASSISTED IN SKIN CARE, ORAL CARE AND SHAMPOO OF HAIR. PT IN BED RESTING WATCHING TV. NO S/S OF RESPIRATORY DISTRESS OR DISCOMFORT AT THIS TIME. CALL LIGHT WITHIN REACH. WILL CONTINUE TO MONITOR.
--- NOTE | 2017-08-07 23:30 | NUR ---
PT WAS ROTATED TO RIGHT SIDE. PT TOLERATED WELL. RESTING IN BED. CALL LIGHT WITHIN REACH. WILL CONTINUE TO MONITOR.
[2017-08-08] VITALS: BP 129/79
--- NOTE | 2017-08-08 | NUR ---
VITAL SIGNS TOLERATED WELL. NO S/S OF RESPIRATORY DISTRESS OR DISCOMFORT NOTED AT THIS TIME. CALL LIGHT WITHIN REACH. WILL CONTINUE TO MONITOR.
--- NOTE | 2017-08-08 01:30 | NUR ---
PT REQUESTED SNACKS. ALSO PILLOWS WERE READJUSTED TO PT COMFORT AND LIKING. CALL LIGHT WITHIN REACH. WILL CONTINUE TO MONITOR.
--- NOTE | 2017-08-08 03:30 | NUR ---
PT WAS REPOSITIONED. PT STATED HIS FACE WAS ITCHY. APPLIED MOISTURIZER TO FACE. CALL LIGHT WITHIN REACH. BED IN LOWEST POSITION. WILL CONTINUE TO MONITOR.
[2017-08-08 04:00] VITALS: BP 149/87
--- NOTE | 2017-08-08 05:30 | NUR ---
PT WAS REPOSITIONED. CALL LIGHT WITHIN REACH. BED IN LOWEST POSITION. WILL CONTINUE TO MONITOR.
--- NOTE | 2017-08-08 06:25 | NUR ---
PT RESTING IN BED AT THIS TIME. NO S/S OF RESPIRATORY DISTRESS OR DISCOMFORT NOTED AT THIS TIME. CALL LIGHT WITHIN REACH. WILL CONTINUE TO MONITOR.
--- NOTE | 2017-08-08 07:18 | NUR ---
ENDORSED PT TO DAY SHIFT NURSE KANDI. PT IN STABLE CONDITION AT THIS TIME.
--- NOTE | 2017-08-08 07:30 | NUR ---
RECEIVED FROM OUTPATIENT PHLEBOTOMIST RN. PT IS AWAKE AND ALERT, OX4. NO S/S OF ACUTE DISTRESS. NO IV ACCESS. DENIES PAIN. PT IS ON TELE MONITOR. NO CONDOM CATH AT THIS TIME, PT WANTS IT RIGHT BEFORE TRANSFERRING TO THE WHEELCHAIR. SKIN INTACT. CALL LIGHT IS WITHIN REACH. ALL SAFETY PRECAUTIONS MET. WILL CONTINUE TO MONITOR.
[2017-08-08 08:00] VITALS: BP 149/76
[2017-08-08] MEDS: ATORVASTATIN 20 MG TAB PO SCH (09:00)
[2017-08-08] MEDS: FUROSEMIDE 20 MG TAB PO SCH (09:00)
--- NOTE | 2017-08-08 09:20 | NUR ---
TURNED PT TO LEFT SIDE FACING WINDOW. NO S/S OF ACUTE DISTRESS. BENGAY AND HYDRAGUARD APPLIED TO TAILBONE AND BUTT CHEEKS. PT REFUSED LIPITOR AND FUROSEMIDE, OTHER MEDS HAS BEEN GIVEN. PT IS RESTING IN BED WATCHING TV.
[2017-08-08] MEDS: guaiFENesin 600 MG TABER PO SCH ×2 (09:24→20:55)
[2017-08-08] MEDS: HYDROCHLOROTHIAZIDE 25 MG TAB PO SCH (09:25)
[2017-08-08] MEDS: LACTOBACILLUS RHAMNOSUS GG 1 EACH CAP PO SCH (09:26)
[2017-08-08] MEDS: PSEUDOEPHEDRINE 30 MG TAB PO SCH ×2 (09:26→20:56)
[2017-08-08] MEDS: amLODIPine 5 MG TAB PO SCH (09:27)
[2017-08-08] MEDS: LEVOFLOXACIN 750 MG TAB PO SCH (09:27)
[2017-08-08] MEDS: MENTHOL/METHYL 10%-15% 114 GM TUBE TP SCH ×2 (09:28→20:56)
[2017-08-08] MEDS: HYDRAGUARD CREAM TP SCH (09:28)
--- NOTE | 2017-08-08 10:05 | NUR ---
HELPED PT ADJUSTING HIS POSITION.
--- NOTE | 2017-08-08 11:15 | NUR ---
BED BATH GIVEN. LINENS AND GOWN CHANGED. HYDRAGUARD AND BENGAY APPLIED TO TAILBONE AND BUTT CHEEKS. SKIN IS INTACT. TURNED PT TO RIGHT SIDE FACING THE DOOR. CALL LIGHT WITHIN REACH. NO S/S OF ACUTE DISTRESS.
[2017-08-08 12:13] VITALS: BP 148/80
[2017-08-08] MEDS ORDERED: SODIUM PHOSPHATE 118 ML ENEM RC ONE (13:55)
--- NOTE | 2017-08-08 14:05 | NUR ---
CHANGED PT TO SUPINE.
--- NOTE | 2017-08-08 14:52 | NUR ---
FAXED CONCURRENT REVIEW TO [facility] [phone] PHONE IRENE [phone] I CALLED [facility] AND THEY DO NOT HAE A CONTRACT WITH MANJEET LUONG.
--- NOTE | 2017-08-08 15:10 | NUR ---
PT DOESN'T WANT FLEET ENEMA AT THIS TIME. PT STATED HE WANTS AFTER DINNER.
[2017-08-08 16:00] VITALS: BP 134/82
--- NOTE | 2017-08-08 16:00 | NUR ---
VITALS TAKEN, TURNED PT TO THE LEFT SIDE. BENGAY AND HYDRAGUARD APPLIED. PT TOLERATED WELL.
--- NOTE | 2017-08-08 16:55 | NUR ---
P.T. NOTES D/C FROM P.T.; ENDORSED TO NURSING.
[2017-08-08] MEDS ORDERED: WARFARIN 1 MG TAB PO SCH ×2 (17:00→18:30)
--- NOTE | 2017-08-08 17:00 | NUR ---
TRANSFERRED PT TO WHEELCHAIR. PT TOLERATED WELL.
[2017-08-08 17:40] LABS: BASOPHILS # (AUTO) 0.1 K/uL (0.00-0.22); BASOPHILS % (AUTO) 1.1 % (0.0-2.0); EOSINOPHILS # (AUTO) 0.2 K/uL (0-0.4); EOSINOPHILS % (AUTO) 2.8 % (0.0-4.0); HEMOGLOBIN 16.7 g/dL (12.0-18.0); LYMPHOCYTES # (AUTO) 1.9 K/uL (2.0-11.5); MEAN CORPUSCULAR HEMOGLOBIN 30 pg (27-31); MEAN CORPUSCULAR HGB CONC 33 g/dL (33-37); MEAN CORPUSCULAR VOLUME 89 fL (80-94); MONOCYTES # (AUTO) 0.4 K/uL (0.8-1.0); MONOCYTES % (AUTO) 4.4 % (1.7-9.3); NEUTROPHILS # (AUTO) 5.7 K/uL (1.8-7.7); NEUTROPHILS % (AUTO) 68.7 % (42.2-75.2); PLATELET COUNT (AUTO) 270 K/uL (140-450); RED BLOOD CELL COUNT(AUTO) 5.59 MIL/uL (4.20-6.10); RED CELL DISTRIBUTION WIDTH 12.1 % (11.6-13.7); WHITE BLOOD COUNT (AUTO) 8.3 K/uL (4.8-10.8)
[2017-08-08 18:05] LABS: PROTHROMBIN TIME 20.7 secs (10.8-13.4)
[2017-08-08 18:07] LABS: ANION GAP 14.1 (8-16); CARBON DIOXIDE 28.8 mmol/L (21-32); CREATININE 0.3 mg/dL (0.7-1.3)
[2017-08-08 18:12] LABS: MAGNESIUM 1.9 mg/dL (1.8-2.4); PHOSPHORUS 3.9 mg/dL (2.5-4.9)
[2017-08-08 18:13] LABS: POTASSIUM 2.9 mmol/L (3.5-5.1)
--- NOTE | 2017-08-08 19:30 | NUR ---
ENDORSED PT TO HEAD OF CONSERVATION, PT IN STABLE CONDITION.
--- NOTE | 2017-08-08 19:31 | NUR ---
RECEIVED REPORT FROM DAY SHIFT RN, PT IS MILKA, ON ROOM AIR. NO IV ACCESS AVAILABLE. IS ON BEDREST, WITH A HEALING INCISION TO LEFT KNEE. . UPDATED BOARD. DISCUSSED PLAN OF CARE WITH PT, PT VERBALIZED UNDERSTANDING. VITAL SIGNS WITHIN NORMAL LIMITS. PT IN STABLE CONDITION, NO SIGNS OF DISTRESS NOTED. BED IN LOWEST POSITION, CALL LIGHT WITHIN REACH. WILL CONTINUE TO MONITOR. Addendum: 08/09/17 at 0135 by Candace Engel RN WRONG NOTE. PLEASE DISREGARD.
--- NOTE | 2017-08-08 19:31 | NUR ---
RECEIVED REPORT FROM DAY SHIFT RN, PT IS A/OX4, ON ROOM AIR. NO IV ACCESS AVAILABLE. PT IS QUADRIPLEGIC. SKIN IS INTACT. UPDATED BOARD. DISCUSSED PLAN OF CARE WITH PT, PT VERBALIZED UNDERSTANDING. VITAL SIGNS WITHIN NORMAL LIMITS. PT IN STABLE CONDITION, NO SIGNS OF DISTRESS NOTED. BED IN LOWEST POSITION, CALL LIGHT WITHIN REACH. WILL CONTINUE TO MONITOR.
[2017-08-08 20:00] VITALS: BP 128/76
--- NOTE | 2017-08-08 21:15 | NUR ---
ADMINISTERED SCHEDULED MEDICATIONS, PT TOLERATED WELL. PT ASKED FOR ORDERED ENEMA TO BE ADMINISTERED AT THIS TIME. ADMINISTERED ENEMA WITH HELP OF 2 LAP HAND TOOL'S, PT TOLERATED WELL. PT IN STABLE CONDITION, NO SIGNS OF DISTRESS NOTED. BED IN LOWEST POSITION, CALL LIGHT WITHIN REACH. WILL CONTINUE TO MONITOR.
[2017-08-09] VITALS: BP 151/85
--- NOTE | 2017-08-09 | NUR ---
VITAL SIGNS WITHIN NORMAL LIMITS. PT IN STABLE CONDITION, NO SIGNS OF DISTRESS NOTED. BED IN LOWEST POSITION, CALL LIGHT WITHIN REACH. WILL CONTINUE TO MONITOR.
[2017-08-09] MEDS: HYDROcodone/APAP 7.5/325 MG 1 TAB PO PRN (00:14)
[2017-08-09 04:00] VITALS: BP 157/89
--- NOTE | 2017-08-09 04:00 | NUR ---
VITAL SIGNS WITHIN NORMAL LIMITS. PT IN STABLE CONDITION, NO SIGNS OF DISTRESS NOTED. BED IN LOWEST POSITION, CALL LIGHT WITHIN REACH. WILL CONTINUE TO MONITOR.
--- NOTE | 2017-08-09 05:45 | NUR ---
PT REFUSED TO HAVE BLOOD DRAWN FOR LABS.
--- NOTE | 2017-08-09 07:26 | NUR ---
VITAL SIGNS WITHIN NORMAL LIMITS. PT IN STABLE CONDITION, NO SIGNS OF DISTRESS NOTED. BED IN LOWEST POSITION, CALL LIGHT WITHIN REACH. WILL CONTINUE TO MONITOR.
--- NOTE | 2017-08-09 07:28 | NUR ---
RECEIVED REPORT FROM AM SECOND OFFICER NURSE AT BEDSIDE FOR CONTINUITY OF CARE.PT IN BED SLEEPING. NO ACUTE DISTRESS NOTED. A/O X 4.PLAN OF CARE DISCUSSED WITH PATIENT. CALL LIGHT WITH IN REACH. PT. DENIES ANY PAIN AT THIS TIME. BED ALARM ON.CALL LIGHT WITHIN REACH.. PATIENT QUADRIPLEGIC REQUIRES TOTAL ASSIST. WILL CONT TO MONITOR.
[2017-08-09 08:00] VITALS: BP 168/95
[2017-08-09] MEDS: LACTOBACILLUS RHAMNOSUS GG 1 EACH CAP PO SCH (09:00)
[2017-08-09] MEDS: HYDROCHLOROTHIAZIDE 25 MG TAB PO SCH (09:00)
[2017-08-09] MEDS: guaiFENesin 600 MG TABER PO SCH ×2 (09:00→20:51)
[2017-08-09] MEDS: FUROSEMIDE 20 MG TAB PO SCH (09:00)
[2017-08-09] MEDS: HYDRAGUARD CREAM TP SCH (09:00)
[2017-08-09] MEDS: ATORVASTATIN 20 MG TAB PO SCH (09:00)
[2017-08-09] MEDS: MENTHOL/METHYL 10%-15% 114 GM TUBE TP SCH ×2 (09:00→20:43)
[2017-08-09] MEDS: PSEUDOEPHEDRINE 30 MG TAB PO SCH ×2 (09:00→20:51)
--- NOTE | 2017-08-09 09:00 | NUR ---
PATIENT IN BED RESTING WITH EYES CLOSED. NO ACUTE DISTRESS NOTED.WILL CONT TO MONITOR.
--- NOTE | 2017-08-09 10:30 | NUR ---
ADMINISTERED MEDICATIONS THAT PATIENT WOULD TAKE WHICH WERE POTASSIUM AND NORVASC ORDERED. PT REFUSED ALL OTHER MEDICATION. PATIENT WOKE UP LATE AND HAD BREAKFAST LATE. WILL CONT TO MONITOR PT.
[2017-08-09] MEDS: POTASSIUM CHLORIDE 10 MEQ TABER PO SCH ×2 (10:31→20:45)
[2017-08-09] MEDS: amLODIPine 5 MG TAB PO SCH (10:32)
--- NOTE | 2017-08-09 12:30 | NUR ---
PATIENT IN BED. ALERT AND ABLE TO MAKE NEEDS KNOWN. REPOSITIONED FOR COMFORT PRN. CALL LIGHT WITHIN REACH, WILL CONT TO MONITOR PT.
--- NOTE | 2017-08-09 14:45 | NUR ---
PATIENT RESTING IN BED WATCHING VIDEOS ON PHONE. NO ACUTE DISTRESS NOTED. CALL LIGHT WITHIN REACH. WILL CONT TO MONITOR PT.
[2017-08-09] MEDS ORDERED: HYDROCHLOROTHIAZIDE 25 MG TAB PO SCH (15:35)
[2017-08-09] MEDS ORDERED: POTASSIUM CHLORIDE 10 MEQ TABER PO ONE (16:00)
--- NOTE | 2017-08-09 16:21 | NUR ---
FAXED CONCURRENT REVIEW TO [facility] [phone] PHONE IRENE [phone] I CALLED [facility] THIS AM AND WAS TOLD THAT [facility] WAS RESPONSIBLE FOR THIS PATIENT AND FOR PLACEMENT. PUT IN 3 CALLS TODAY FRO IRENE, . NO CALL BACK.
[2017-08-09] MEDS ORDERED: WARFARIN 5 MG TAB PO SCH (16:30)
--- NOTE | 2017-08-09 16:30 | NUR ---
PATIENT HAD BED BATH GOOD PERICARE PROVIDED. PATIENT REPOSITIONED. CALL LIGHT POSITIONED WITHIN REACH WITH CHIN. WILL CONT TO MONITOR.
[2017-08-09] MEDS ORDERED: HYDROcodone/APAP 7.5/325 MG 1 TAB PO PRN (16:40)
--- NOTE | 2017-08-09 16:40 | NUR ---
ADMINISTERED POTASSIUM AND WARFARIN ORDERED. PT TOLERATED WELL. WILL CONT TO MONITOR PT.
[2017-08-09] MEDS ORDERED: WARFARIN 1 MG TAB PO SCH (17:00)
[2017-08-09 17:09] LABS: PROTHROMBIN TIME 19.4 secs (10.8-13.4)
[2017-08-09 17:10] LABS: ANION GAP 14.3 (8-16); CREATININE 0.4 mg/dL (0.7-1.3); POTASSIUM 3.3 mmol/L (3.5-5.1)
--- NOTE | 2017-08-09 18:10 | NUR ---
PATIENT CALLED TO ASK FOR ASSISTANCE WITH USE OF PHONE . PATIENT WANTED TO BE REPOSITIONED AND TO MAKE A VIDEO CHAT SET UP WITH HIS BENZENE WORKER. ASSISTED PATIENT TO DO SO. PATIENT ALERT AND ABLE TO VERBALIZE NEEDS. NO ACUTE DISTRESS NOTED. CALL LIGHT WITHIN REACH. WILL CONT TO MONITOR.
--- NOTE | 2017-08-09 19:30 | NUR ---
ENDORSED REPORT TO NURSING HOME SOCIAL WORKER NURSE AT BEDSIDE FOR CONTINUITY OF CARE.
--- NOTE | 2017-08-09 19:30 | NUR ---
RECEIVED REPORT. PT GCS 15. BILATERAL PERRLA NOTED. DENIES PAIN. DENIES DISCOMFORT. LUNGS SOUND CLEAR BILATERALLY. EQUAL, UNLABORED BILATERAL BREATH NOTED. VITALS WITHIN NORMAL. SKIN WARM, DRY, INTACT. PT IS QUADRIPLEGIC. PULSE PALPABLE X 4 EXTREMITIES. ABDOMEN SOFT, NONTENDER. BOWEL SOUND PRESENT X 4 QUADRANT. NO S/SX OF ACUTE DISTRESS NOTED. FALL AND SAFETY PRECAUTION MAINTAINED. BED AT LOWEST SETTING. CALL LIGHT WITHIN REACH. WILL CONTINUE TO MONITOR FOR CHANGES.
[2017-08-09 20:00] VITALS: BP 148/80
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
--- NOTE | 2017-08-10 | NUR ---
PT DENIES PAIN OR DISCOMFORT. TALKING ON THE PHONE WITH FRIENDS AT THIS TIME.
--- NOTE | 2017-08-10 01:23 | NUR ---
PT REPOSITIONED REQUESTED. TOLERATED WELL. PT VERBALIZED COMFORT. WILL CONTINUE TO MONITOR.
--- NOTE | 2017-08-10 02:17 | NUR ---
CALL LIGHT ANSWERED. PT VISIBLY AGITATED. ON ASSESSMENT, PT STATES THAT " YOU PEOPLE SHOULD KNOW WHAT I WANT WITHOUT ME TELLING YOU". REITERATE TO PT THAT UNLESS PT ACTUALLY ASK FOR SOMETHING, STAFF WILL NOT BE ABLE TO KNOW WHAT HE NEEDS. PT THEN STATED "YOU SHOULD ALREADY KNOW THAT MY FOREHEAD IS SWEATY", REQUESTED FOR TOWEL AND TO BE PAT DOWN BECAUSE HIS "FOREHEAD WAS SWEATING". TOWEL PROVIDED, SERVICE PROVIDED. PT THEN STATED THAT "YOU SHOULD ALSO KNOW THAT I MY EARPHONE NEED TO BE PUSHED IN MORE". REITERATE TO PT THAT I CANNOT KNOW SOMETHING LIKE THAT WITHOUT BEING TOLD. EARPHONE IS THEN ADJUSTED. PT REQUESTED DOOR TO BE CLOSED ON LEAVING. REITERATE TO PT THAT STAFF WILL NOT BE ABLE TO HEAR HIM WITH THE DOOR CLOSE UNLESS HE HITS THE CALL LIGHT. PT STATED THAT HE WANTS THE DOOR CLOSE.
--- NOTE | 2017-08-10 03:45 | NUR ---
PT REQUESTED TO BE REPOSITIONED. STATED TO PT THAT I'M AWAITING OTHER AVAILABLE HELP. PT VERBALIZED UNDERSTANDING. REQUESTED ALL PILLOWS TO BE REMOVED AT THIS TIME. PT STATED NEED TO VOID AT THIS TIME ALSO. ASSISTED PT WITH URINE. DARK YELLOW URINE OBTAINED. JOSE JUAN CARE GIVEN. PT REQUESTED HELP WITH PHONE WHILE AWAITING OTHER STAFF AVAILABILITY. ASSISTED PT IN CHOOSING VIDEO TO WATCH AND ALSO ASSISTED IN READJUSTING EARPHONE. NO S/SX OF ACUTE DISTRESS AT THIS TIME
[2017-08-10 04:00] VITALS: BP 145/79
--- NOTE | 2017-08-10 04:55 | NUR ---
AT 0420, ASSISTED PT IN TURNING REQUESTED. ALL PILLOWS PLACED REQUESTED, ALL EXTREMITIES PLACED REQUESTED, TOWEL BETWEEN HANDS PLACED REQUESTED. LOTION PLACED ON FACE REQUESTED. HEADPHONE PLACED ON OPPOSITE EAR REQUESTED. PHONE POSITION READJUSTED REQUESTED, VIDEO SELECTION CHOSEN REQUESTED. BED READJUSTED REQUESTED. WATER PROVIDED REQUESTED. WARM BLANKET GIVEN REQUESTED. PT VERBALIZED COMFORT. CURTAINS CLOSED REQUESTED, CALL LIGHT PLACE IN POSITION REQUESTED. DOOR CLOSED REQUESTED.
--- NOTE | 2017-08-10 06:00 | NUR ---
PER FINANCIAL PLANNING CONSULTANT, PT REFUSED BLOOD DRAW AT THIS TIME D/T HAVING BLOOD DRAWN YESTERDAY.
--- NOTE | 2017-08-10 06:45 | NUR ---
PT REPOSITIONED ORDERED. ALL REQUEST FOLLOWED. NO S/SX OF ACUTE DISTRESS NOTED.
--- NOTE | 2017-08-10 07:30 | NUR ---
RECEIVED REPORT AT BEDSIDE FROM GUEST SERVICE AGENT NURSE FOR CONTINUITY OF CARE.
--- NOTE | 2017-08-10 08:00 | NUR ---
INITIAL ASSESSMENT DONE. PATIENT ALERT AND ABLE TO VERBALIZE NEEDS. NO ACUTE DISTRESS NOTED. RESP EVEN AND UNLABORED. PATIENT WITH ACTIVE BOWEL SOUNDS. PATIENT RESTING IN BED WITH EYES CLOSED EASILY WOKEN. NO C/O PAIN AT THIS TIME. PLAN OF CARE DISCUSSED WITH PATIENT. CALL LIGHT WITHIN REACH. WILL CONT TO MONITOR.
[2017-08-10] MEDS: PSEUDOEPHEDRINE 30 MG TAB PO SCH ×2 (09:00→21:17)
[2017-08-10] MEDS: LACTOBACILLUS RHAMNOSUS GG 1 EACH CAP PO SCH (09:00)
[2017-08-10] MEDS: FUROSEMIDE 20 MG TAB PO SCH (09:00)
[2017-08-10] MEDS: MENTHOL/METHYL 10%-15% 114 GM TUBE TP SCH ×2 (09:00→21:17)
[2017-08-10] MEDS: HYDRAGUARD CREAM TP SCH (09:00)
[2017-08-10] MEDS ORDERED: HYDROCHLOROTHIAZIDE 25 MG TAB PO SCH (09:00)
[2017-08-10] MEDS: guaiFENesin 600 MG TABER PO SCH ×2 (09:00→21:17)
[2017-08-10] MEDS: ATORVASTATIN 20 MG TAB PO SCH (09:00)
--- NOTE | 2017-08-10 10:10 | NUR ---
EXPLAINED TO PT. OF LOW SAMMIE SCORE WITH VERY HIGH RISK OF PRESSURE INJURY, WOUND CARE NURSE OFFERED WOUND BED FOR PRESSURE REDISTRIBUTION SURFACE AND PT REFUSED IT. PRIMARY RN AND BUS DISPATCHER INTERSTATE AT BED SIDE FOR AM CARE REPORTED PT. SKIN INTACT, NO REDNESS.
[2017-08-10] MEDS: amLODIPine 5 MG TAB PO SCH (10:55)
[2017-08-10] MEDS: POTASSIUM CHLORIDE 10 MEQ TABER PO SCH (10:55)
--- NOTE | 2017-08-10 12:30 | NUR ---
PATIENT ALERT AND ABLE TO MAKE NEEDS KNOWN. NO ACUTE DISTRESS NOTED. DENIES PAIN AT THIS TIME. PATIENT VERBALIZED HE WANTED TO GET OOB AROUND 2. WILL COORDINATE WITH RUBBISH COLLECTOR TO GET PT OOB AT THAT TIME.
--- NOTE | 2017-08-10 14:30 | NUR ---
PATIENT OUT OF BED IN WC. POSITIONED FOR COMFORT IN WC. PATIENT HAVING A LATE LUNCH AT THIS TIME. WANTED A TUNA SANDWICH. HE DID NOT LIKE HIS LUNCH THIS AFTERNOON. WILL CONT TO MONITOR.
--- NOTE | 2017-08-10 14:35 | NUR ---
CM NOTE CONCURRENT REVIEW FAXED TO [facility] / FAX# [phone], ATTN: IRENE #[phone]
[2017-08-10 16:00] VITALS: BP 126/79
--- NOTE | 2017-08-10 16:30 | NUR ---
PATIENT ROAMING HALLS OF UNIT. PATIENT ALERT AND ABLE TO MAKE NEEDS KNOWN. REPOSITIONED PATIENT IN WC FOR COMFORT. WILL CONT TO MONITOR PT.
[2017-08-10] MEDS ORDERED: WARFARIN 1 MG TAB PO SCH (17:00)
--- NOTE | 2017-08-10 18:30 | NUR ---
PATIENT BACK IN ROOM IN WC. WATCHING TV.REPOSITIONED FOR COMFORT IN WC. NO ACUTE DISTRESS. NO C/O PAIN.WILL CONT TO MONITOR PT.
--- NOTE | 2017-08-10 19:25 | NUR ---
ENDORSED REPORT TO FLATWORK TIER NURSE AT BEDSIDE FOR CONTINUITY OF CARE. PATIENT STABLE IN MOTORIZED CHAIR.
--- NOTE | 2017-08-10 19:27 | NUR ---
RECEIVED REPORT FROM RACHEL RN. PT SITTING IN CHAIR. NO S/S OF ACUTE DISTRESS. AAOX4. PT HAS NO IV SITE AND REFUSES INSERTION AT THIS TIME. HEEL PROTECTORS IN PLACE. PT DENIES PAIN.CALL LIGHT WITHIN REACH. SAFETY MEASURES ENSURED.WILL CONTINUE TO MONITOR.
[2017-08-10 20:05] VITALS: BP 139/82
--- NOTE | 2017-08-10 22:30 | NUR ---
PT SLEEPING IN BED.NO S/S OF ACUTE DISTRESS. CALL LIGHT WITHIN REACH. WILL CONTINUE TO MONITOR.
[2017-08-11] VITALS: BP 133/80
--- NOTE | 2017-08-11 03:40 | NUR ---
PT SLEEPING IN BED. NO S/S OF ACUTE DISTRESS. WILL CONTINUE TO MONITOR.
--- NOTE | 2017-08-11 06:20 | NUR ---
PT REPOSITIONED TO RIGHT SIDE. NO S/S OF ACUTE DISTRESS. WILL CONTINUE TO MONITOR.
--- NOTE | 2017-08-11 07:10 | NUR ---
RECEIVED PATIENT REPORT AT BEDSIDE. PATIENT AWAKE AND ALERT. NO S/S OF DISTRESS NOTED. NO IV LINE IN PLACE. PATIENT REFUSES TO HAVE IV LINE. BED LOWERED WITH CALL LIGHT WITHIN REACH. WILL CONTINUE TO MONITOR
--- NOTE | 2017-08-11 07:30 | NUR ---
ENDORSED PLAN OF CARE TO LEXA WHITAKER. PT REMAINS STABLE.
[2017-08-11 08:00] VITALS: BP 162/95
--- NOTE | 2017-08-11 08:12 | NUR ---
LE;FT A MESSAGE WITH IRENE FROM [facility] ABOUT PLACEMENT. I CALLED COORDINATOR FROM [facility], SHAHBAZ, AND HE SAID HE WOULD CALL ME BACK.
[2017-08-11] MEDS: ATORVASTATIN 20 MG TAB PO SCH (09:00)
[2017-08-11] MEDS: MENTHOL/METHYL 10%-15% 114 GM TUBE TP SCH ×2 (09:00→21:07)
[2017-08-11] MEDS: HYDRAGUARD CREAM TP SCH (09:00)
[2017-08-11] MEDS ORDERED: POTASSIUM CHLORIDE 10 MEQ TABER PO SCH (09:00)
--- NOTE | 2017-08-11 09:00 | NUR ---
ADMINISTERED DUE MEDICATIONS. PATIENT TOLERATED WELL
[2017-08-11] MEDS: PSEUDOEPHEDRINE 30 MG TAB PO SCH ×2 (09:55→20:12)
[2017-08-11] MEDS: guaiFENesin 600 MG TABER PO SCH ×2 (09:56→20:12)
[2017-08-11] MEDS: amLODIPine 5 MG TAB PO SCH (09:56)
[2017-08-11] MEDS: FUROSEMIDE 20 MG TAB PO SCH (09:57)
[2017-08-11] MEDS: LACTOBACILLUS RHAMNOSUS GG 1 EACH CAP PO SCH (09:57)
--- NOTE | 2017-08-11 11:30 | NUR ---
PATIENT GIVEN BED BATH. PATIENT TRANSFERRED TO THE CHAIR PER PATIENT'S REQUEST.
--- NOTE | 2017-08-11 12:59 | NUR ---
SHAHBAZ FROM [facility] CALLED ME BACK THIS AM. HE SAID HE WOULD LOOK FOR PLACEMENT. AND ASKED IF I FOUND A SNF. I SAID I DIDN'T HAVE A LIST A CONTRACTED FACILITIES. HE SAID HE WOULD FAX A LIST. HE DID SAY HE WOULD TRY PLACEMENT THIS AM.
--- NOTE | 2017-08-11 14:30 | NUR ---
PATIENT IN HIS [place] WATCHING TELEVISION. NO S/S OF DISTRESS
--- NOTE | 2017-08-11 14:56 | NUR ---
08/11/17 RD FOLLOW UP COMPLETED PLEASE REFER TO NUTRITION PROGRESS NOTE UNDER CARE ACTIVITY FOR ESTIMATED NUTRITION NEEDS. RD RECOMMENDATIONS: 1. CONTINUE 2 GM SODIUM DIET TOLERATED 2.RD WILL F/U 3-5 DAYS; MODERATE RISK. DARLENE FIELD MS, RDN
[2017-08-11 16:00] VITALS: BP 115/73
--- NOTE | 2017-08-11 17:00 | NUR ---
PATIENT TRANSFERRED BACK TO BED USING THE JEANNE LIFT. PATIENT TURNED AND REPOSITIONED FOR COMFORT. WILL CONTINUE TO MONITOR
--- NOTE | 2017-08-11 19:20 | NUR ---
PT REPORT GIVEN AT BEDSIDE TO NIGHTSHIFT NURSE. PT ENDORSED IN STABLE CONDITION.
--- NOTE | 2017-08-11 19:21 | NUR ---
RECEIVED REPORT FROM NIGHT NURSE, JULIANNE LINDQUIST. PT IN STABLE CONDITION. NO S/S OF DISTRESS NOTED. PT QUADRIPLEGIC. PT AAOX4, ON ROOM AIR. NO IV IN PLACE, PT REFUSES. SKIN IS WARM AND DRY TO TOUCH. SKIN IS INTACT. RR EVEN/UNLABORED. BOWEL SOUNDS PRESENT. INITIAL ASSESSMENT COMPLETED, PLAN OF CARE DISCUSSED WITH PT, VERBALIZED UNDERSTANDING. ALL SAFETY PRECAUTIONS MET, CALL LIGHT WITHIN REACH, BOARD UPDATED, WILL CONTINUE TO MONITOR.
--- NOTE | 2017-08-11 19:45 | NUR ---
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 YOU DON'T KNOW ANYTHING YOU ONLY GET THINGS IN LIFE BECAUSE OF YOUR LOOKS." "YOU DON'T KNOW HOW TO DO ANYTHING." "WHAT WILL YOU HAVE WHEN YOU DON'T HAVE LOOKS? NOTHING, YOU WILL BE ON THE STREETS WITHOUT MONEY." "THE DEVIL IS COMING FOR YOU, I HAVE SOMETHING FOR YOU, YOU DON'T EVEN KNOW, GOD SENT IT TO ME, YOU AREN'T READY FOR THIS." "THE DEVIL WILL COME FOR YOU AND HE WILL FUCK YOU, AND ANIMALS WILL FUCK YOU." PT STATES, "I CAN SAY AND DO WHATEVER I WANT, I AM GOD."
--- NOTE | 2017-08-11 20:00 | NUR ---
PT OFFERED DINNER, PT REFUSES, PT STATES,"THIS FOOD IS FUCKING HORRIBLE, HOMELESS PEOPLE WOULDN'T EAT! I'M NOT EATING THAT SHIT!" PT ASKED FOR BREAD, FED PT BREAD AND GAVE WATER WITH BREAD. PT STATES, "YOU'RE GOING TO HELL FOR THIS! YOU ONLY GET BY IN LIFE BECAUSE OF YOUR LOOKS, YOU DON'T KNOW WHAT YOU ARE DOING!" "THE DEVIL WILL COME FOR YOU AND YOU'RE FAMILY, YOU WILL PAY AND BE LEFT WITH NO MONEY"
--- NOTE | 2017-08-11 21:00 | NUR ---
PT REPOSITIONED FOR COMFORT, PILLOWS PLACED WHERE PT INSISTED ON, PT POSITIONED WHERE HE INSISTS ON, CHANNEL ON TV CHANGED 10 TIMES, PT GIVEN WATER AND FOOD. PTS VIDEO ON YOUTUBE SELECTED DEMANDED, ALL NEEDS MET, WILL CONTINUE TO MONITOR
--- NOTE | 2017-08-11 21:30 | NUR ---
PT CALLED TO USE URINAL, PT STATED,"YOU SHOULD HAVE KNOWN I NEEDED TO USE IT, I DON'T NEED TO TELL YOU." PT GIVEN URINAL, 250ML OF CLEAR YELLOW URINE NOTED.
--- NOTE | 2017-08-11 22:00 | NUR ---
PT REQUESTS TUNA SANDWICH AND CHIPS, PT GIVEN TUNA SANDWICH AND CHIPS. PT STILL VISIBLY AGITATED AND STATES, "I GET NOTHING AT THIS HOSPITAL! YOU PEOPLE ARE STARVING ME!" EXPLAINED TO PT HE REFUSED TO EAT HIS DINNER. PT STATES, "I KNOW I DID, I'M NOT EATING THAT SHIT!" "YOU AREN'T FEEDING ME."
--- NOTE | 2017-08-11 22:10 | NUR ---
PT YELLING, "YOU SHOULD KNOW IM SWEATING! CLEAN MY FACE NOW!" PTS FACED CLEANED AND ORAL CARE PROVIDED
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
--- NOTE | 2017-08-11 22:30 | NUR ---
PT DENIES NEEDING TO USE URINAL AND STATES, "I CANT' POOP I HAVEN'T POOPED IN A WEEK HERE, YOU PEOPLE GIVE ME NOTHING TO POOP."
--- NOTE | 2017-08-11 22:35 | NUR ---
INFORMED CHARGE NURSE ANGELA THAT PT STATES HE WANTS TO KILL EVERYONE
--- NOTE | 2017-08-11 23:15 | NUR ---
PT YELLING IN ROOM, PT YELLING BECAUSE HE WANTS A DIFFERENT YOUTUBE CHANNEL PUT ON. SPENT 20 MINS TO FIND NEW YOUTUBE CHANNEL. PT STILL NOT SATISFIED
[2017-08-12] VITALS: BP 120/68
--- NOTE | 2017-08-12 | NUR ---
PT REPOSITIONED FOR COMFORT, PILLOWS PLACED WHERE PT INSISTED ON, PT POSITIONED WHERE HE INSISTS ON, CHANNEL ON TV CHANGED NUMEROUS TIMES, PT VISIBLY AGITATED AND STATES, "THESE CHANNELS ALL HAVE COMMERCIALS YOU AREN'T DOING YOUR JOB AND FINDING ME A SHOW, YOU WILL PAY IN HELL FOR THIS." PT GIVEN WATER AND FOOD. PTS [facility] ON [facility], ALL NEEDS MET, WILL CONTINUE TO MONITOR
--- NOTE | 2017-08-12 02:30 | NUR ---
PT REPOSITIONED, PT YELLING,"YOU SHOULD HAVE BEEN IN HERE THREE HOURS AGO! IT'S WAY PAST THE TIME, YOU'RE ALL DEMONS, GET THIS IMMIGRANT OUT OF MY FACE! SEND HER TO [place]! FUCK YOU ALL, GET THE FUCK OUT OF MY ROOM! MOVE MY PILLOWS NOW! PUT THE PILLOW UNDER MY LEG! TAKE THE PILLOW OUT! PUT MY LEG UP TO THE CEILING!" PT ASKED FOR WATER, RITESH AQUINO GAVE WATER AND PT SPIT IT IN HER FACE.
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
--- NOTE | 2017-08-12 03:55 | NUR ---
DR. LAMAR JUST LEFT PT ROOM, HAS BEEN WITH PT FOR ALMOST AN HOUR TO MEET HIS NEEDS. PT STILL CLAIMING WE ARE DOING NOTHING.
--- NOTE | 2017-08-12 04:05 | NUR ---
POLICE HERE WITH DR. LAMAR, CHARGE NURSE ANGELA RN, HOUSE SUPERIVOR GABE RN.
--- NOTE | 2017-08-12 04:33 | NUR ---
ANGELA CHARGE NURSE RN, AND CHAU JAMILSENIOR SYSTEMS ARCHITECT EXPLAINED TO POLICE HOW PT HAS BEEN AND THAT WE HAVE DONE EVERYTHING PT HAS ASKED BUT HE IS NEVER SATISFIED AND STATES WE DO NOTHING
--- NOTE | 2017-08-12 04:35 | NUR ---
PT CALLED AGAIN, ASKING FOR HIS LEGS TO BE REPOSITIONED AGAIN. PT STATES WE NEED TO "RAISE LEG TO THE CEILING AND PUT PILLOW 2 INCHES AWAY FROM LEG." PT STATES, YOU CAN'T EVER GET IT RIGHT!" THERESAR IN, ATTEMPTING TO MOVE LEG AND REPOSITION. PT NOT SATISFIED. REPOSITIONED LEG AND PILLOWS 5 TIMES.
--- NOTE | 2017-08-12 04:46 | NUR ---
PT CALLED AGAIN. PT STATING, "MY PHONE ISN'T POSITIONED CORRECTLY, REPOSITION IT NOW!"
--- NOTE | 2017-08-12 05:45 | NUR ---
PT TURNED AND REPOSITIONED FOR COMFORT. PILLOWS ADJUSTED TO PT DEMANDS, PT STILL VISIBLY AGITATED, PT STATES,"COME ON YOU GUYS SHOULD SPEND AN HOUR IN HERE, YOU DON'T SPEND ANYTIME. WHAT ARE YOU DOING? NURSES SHOULD KNOW WHAT IS ON MY MIND WITHOUT ME SAYING IT."
--- NOTE | 2017-08-12 06:30 | NUR ---
PT ONLY LET SEWAGE PLANT ATTENDANT DRAW ONE TIME SHE COULDN'T GET IT, LABS WERE NOT DRAWN THIS AM
--- NOTE | 2017-08-12 06:37 | NUR ---
PT STATES HE IS GOING AMA TODAY AND THAT BEING HOMELESS IS BETTER THEN STAYING AT THIS HOSPITAL
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
--- NOTE | 2017-08-12 07:10 | NUR ---
REPORT GIVEN TO KIMBER LINDQUIST FOR CONTINUITY OF CARE, PT IN STABLE CONDITION.
--- NOTE | 2017-08-12 07:11 | NUR ---
RECEIVED REPORT FROM RN MOBILE NURSE. PATIENT LYING DOWN IN BED TALKING ON THE PHONE WITH A FRIEND. NO DISTRESS NOTED. DENIES ANY PAIN AT THIS TIME. RESPIRATIONS EVEN, UNLABORED, ON ROOM AIR. AAOX4, CALM, COOPERATIVE, SKIN COLOR APPROPRIATE TO ETHNICITY, WARM TO TOUCH. 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 LUNGS CTA ON ALL LOBES. ABDOMEN SOFT. NO IV SITE NOTED DUE TO PATIENT REFUSING IV STICK AND IVF PER RN MOBILE NURSE REPORTS. REVIEWED PLAN OF CARE WITH PATIENT. PATIENT VERBALIZED UNDERSTANDING. SAFETY MEASURES IN PLACE, CALL LIGHT WITHIN REACH. WILL CONTINUE TO MONITOR.
[2017-08-12 08:00] VITALS: BP 163/89
[2017-08-12] MEDS: LACTOBACILLUS RHAMNOSUS GG 1 EACH CAP PO SCH (09:35)
[2017-08-12] MEDS: PSEUDOEPHEDRINE 30 MG TAB PO SCH ×2 (09:35→20:56)
[2017-08-12] MEDS: ATORVASTATIN 20 MG TAB PO SCH (09:36)
[2017-08-12] MEDS: guaiFENesin 600 MG TABER PO SCH ×2 (09:36→20:56)
[2017-08-12] MEDS: amLODIPine 5 MG TAB PO SCH (09:36)
[2017-08-12] MEDS: MENTHOL/METHYL 10%-15% 114 GM TUBE TP SCH ×2 (09:37→20:59)
[2017-08-12] MEDS: FUROSEMIDE 20 MG TAB PO SCH (09:37)
[2017-08-12] MEDS: HYDRAGUARD CREAM TP SCH (09:38)
--- NOTE | 2017-08-12 09:48 | NUR ---
PATIENT LYING IN BED WATCHING TV. NO DISTRESS NOTED. DENIES ANY PAIN. SCHEDULED MEDICATIONS DUE GIVEN. GIVEN COLACE DUE TO NO BOWEL MOVEMENT WITHIN 3 DAYS PER PATIENT REPORTS. SAFETY MEASURES IN PLACE, CALL LIGHT WITHIN REACH. WILL CONTINUE TO MONITOR.
--- NOTE | 2017-08-12 10:58 | NUR ---
ASSISTED PATIENT IN REPOSITIONING AND CLEANING. CONDITION UNCHANGED. SAFETY MEASURES IN PLACE, CALL LIGHT WITHIN REACH. WILL CONTINUE TO MONITOR.
--- NOTE | 2017-08-12 13:00 | NUR ---
ASSISTED PATIENT ON TO WHEELCHAIR. AND ASSISTED PATIENT WITH LUNCH FEEDING. NO DISTRESS NOTED. DENIES ANY PAIN. CONDITION UNCHANGED. WILL CONTINUE TO MONITOR.
--- NOTE | 2017-08-12 13:54 | NUR ---
Social Service Note: SNF placement follow up: Per Patricia from [facility] , no watermelon inspector beds. Per Ryne from [facility] , no long-term beds. Left message for admission coordinator at [facility] Per Sathish from [facility] no beds. Per Gabriela from [facility] , no beds. Per Anuel from [facility] , no beds. I left a message with Js for admission coordinator at [facility] to call me. I left a message with Meena for admission coordinator at [facility] to call me. Addendum: 08/12/17 at 140 by Shaye HARRINGTON Per Pravin from [facility] , no beds. Addendum: 08/12/17 at 1413 by Shaye HARRINGTON I faxed inquiry to [facility], phone number , fax , pending response. Addendum: 08/12/17 at 1418 by Shaye HARRINGTON correction: Uvaldo Costello from [facility] , not from [facility]. Addendum: 08/12/17 at 1419 by Shaye Todd SS Uvaldo Meneses from [facility] no watermelon inspector beds. Addendum: 08/12/17 at 1421 by Shaye Todd SS Per Belgica from [facility] , no beds. Addendum: 08/12/17 at 1424 by Shaye Todd SS Uvaldo Weinstein from [facility] , no beds.
--- NOTE | 2017-08-12 14:04 | NUR ---
PATIENT SITTING IN POWERED WHEELCHAIR TALKING WITH FAMILY MEMBER AT BEDSIDE. NO DISTRESS NOTED. DENIES ANY PAIN. CONDITION UNCHANGED. SAFETY MEASURES IN PLACE, CALL LIGHT WITHIN REACH. WILL CONTINUE TO MONITOR.
[2017-08-12 16:00] VITALS: BP 137/83
--- NOTE | 2017-08-12 16:15 | NUR ---
PATIENT ON POWERED WHEELCHAIR TALKING ON THE PHONE WITH BROTHER. MOVING AROUND THE [facility] HALLWAYS IN POWERED WHEELCHAIR. NO DISTRESS NOTED. DENIES ANY PAIN. SAFETY MEASURES IN PLACE, CALL LIGHT WITHIN REACH. WILL CONTINUE TO MONITOR.
[2017-08-12] MEDS ORDERED: WARFARIN 1 MG TAB PO SCH (17:00)
--- NOTE | 2017-08-12 18:14 | NUR ---
PATIENT SITTING IN POWERED WHEELCHAIR. COUMADIN 3 MG PO GIVEN PER MD ORDERS. EXPLAINED RISKS TO PATIENT. PATIENT VERBALIZED UNDERSTANDING AND REPORTED THAT HE HAS BE ON IT FOR 3 YEARS. SAFETY MEASURES IN PLACE, CALL LIGHT WITHIN REACH. WILL CONTINUE TO MONITOR.
--- NOTE | 2017-08-12 19:30 | NUR ---
RECEIVED PATIENT ON HIS WHEELCHAIR WITH FAMILY MEMBER. PATIENT AOX4 WATCHING TV. PATIENT WANT TO GO BACK TO BED AFTER DINNER. NO S/S ACUTE DISTRESS NOTED AT THIS TIME.
--- NOTE | 2017-08-12 19:30 | NUR ---
GAVE REPORT TO ELEMENTARY SPANISH TEACHER NURSE FOR CONTINUITY OF CARE. PATIENT IN STABLE CONDITION.
[2017-08-12 20:00] VITALS: BP 146/98
[2017-08-12] MEDS ORDERED: BISACODYL 10 MG SUPP RC ONE (20:50)
[2017-08-12] MEDS: DOCUSATE SODIUM 100 MG GELCAP PO PRN (21:31)
--- NOTE | 2017-08-12 21:35 | NUR ---
TRANSFERRED PATIENT FROM MOTORIZED W/C TO BED USING JEANNE LIFT WITH 3 PERSON ASSISTANCE. PERINEAL CARE,ORAL CARE DONE. ASSISTING PATIENT TO USED URINAL AND TURNED PATIENT TO HIS LEFT SIDE . BED IN LOW POSITION, CALL LIGHT WITHIN REACH, BED ALARM ON. NO S/S OF ACUTE DISTRESS AT THIS TIME. WILL CONTINUE TO MONITOR
--- NOTE | 2017-08-13 00:15 | NUR ---
REPOSITIONED PATIENT AND ATTENDS PATIENT NEEDS. PATIENT HAS BM WITH LARGE AMOUNT BROWN IN COLOR AND PASTY. BED IN LOW POSITION, CALL LIGHT WITHIN REACH, BED ALARM ON. WILL CONTINUE TO MONITOR .
--- NOTE | 2017-08-13 02:00 | NUR ---
PATIENT LYING ON BED RESTING, ASLEEP BUT EASILY AROUSABLE. REPOSITIONED PATIENT AND ALL NEEDS ATTENDED. BED IN LOW POSITION, CALL LIGHT WITHIN REACH, BED ALARM ON. NO S/S OF DISTRESS NOTED AT THIS TIME. WILL CONTINUE TO MONITOR.
--- NOTE | 2017-08-13 04:35 | NUR ---
PATIENT LYING IN BED ASLEEP IN COMFORTABLE POSITION. REPOSITION PATIENT AND NEEDS ATTENDED. BED IN LOW POSITION,CALL LIGHTS WITHIN REACH, BED ALARM ON. WILL CONTINUE TO MONITOR.
--- NOTE | 2017-08-13 05:21 | NUR ---
AM CARE DONE TO PATIENT AND CHANGE LINEN AND POSITION PATIENT TO HIS DESIRED POSITION. PLAN OF CARE DISCUSSED TO PATIENT AND VERBALIZED UNDERSTANDING.
--- NOTE | 2017-08-13 06:56 | NUR ---
DUE TO CHANGE IN SAMMIE SCORE PATIENT HAS BEEN RESCREENED AND REASSESSED HIGH NUTRITION RISK. PATIENT WILL BE SEEN AND ASSESSED WITHIN 2-3 DAYS OF CHANGE IN SAMMIE SCORE. 08/14/17-08/15/17 DARLENE FIELD MS, RDN
--- NOTE | 2017-08-13 07:15 | NUR ---
PATIENT ENDORSED TO KIMBER LINDQUIST DAY SHIT NURSE FOR CONTINUITY OF CARE. PATIENT IS IN STABLE CONDITION.
--- NOTE | 2017-08-13 07:16 | NUR ---
RECEIVED REPORT FROM BRUSH HOLDER INSPECTOR NURSE. PATIENT LYING DOWN IN BED WATCHING TV. NO DISTRESS NOTED. DENIES ANY PAIN AT THIS TIME. RESPIRATIONS EVEN, UNLABORED, ON ROOM AIR. AAOX4, CALM, COOPERATIVE, SKIN COLOR APPROPRIATE TO ETHNICITY, WARM TO TOUCH. 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 LUNGS CTA ON ALL LOBES. ABDOMEN SOFT. NO IV SITE NOTED DUE TO PATIENT REFUSING IV STICK AND IVF. REVIEWED PLAN OF CARE WITH PATIENT. PATIENT VERBALIZED UNDERSTANDING. SAFETY MEASURES IN PLACE, CALL LIGHT WITHIN REACH. WILL CONTINUE TO MONITOR.
--- NOTE | 2017-08-13 07:30 | NUR ---
LAB RECOVERY UNIT OPERATOR VERBALLY REPORTED THAT PATIENT REFUSED SECOND ATTEMPT OF BLOOD DRAW THIS MORNING AT 0730. FIRST ATTEMPT WAS AT 0600 WHERE RECOVERY UNIT OPERATOR WAS NOT ABLE TO SUCCESSFULLY DRAW BLOOD AT THAT TIME. WILL NOTIFY
[2017-08-13 08:00] VITALS: BP 150/90
--- NOTE | 2017-08-13 09:00 | NUR ---
PATIENT LYING IN BED WATCHING VIDEOS ON THE PHONE. NO DISTRESS NOTED. DENIES ANY PAIN. SAFETY MEASURES IN PLACE, CALL LIGHT WITHIN REACH. WILL CONTINUE TO MONITOR.
[2017-08-13] MEDS: FUROSEMIDE 20 MG TAB PO SCH (09:45)
[2017-08-13] MEDS: PSEUDOEPHEDRINE 30 MG TAB PO SCH ×2 (09:45→20:34)
[2017-08-13] MEDS: LACTOBACILLUS RHAMNOSUS GG 1 EACH CAP PO SCH (09:45)
[2017-08-13] MEDS: guaiFENesin 600 MG TABER PO SCH ×2 (09:45→20:34)
[2017-08-13] MEDS: ATORVASTATIN 20 MG TAB PO SCH (09:45)
[2017-08-13] MEDS: HYDRAGUARD CREAM TP SCH (09:46)
[2017-08-13] MEDS: MENTHOL/METHYL 10%-15% 114 GM TUBE TP SCH ×2 (09:46→21:00)
[2017-08-13] MEDS: amLODIPine 5 MG TAB PO SCH (09:46)
[2017-08-13] MEDS: DOCUSATE SODIUM 100 MG GELCAP PO PRN (09:51)
--- NOTE | 2017-08-13 10:10 | NUR ---
PATIENT LYING IN BED COMFORTABLY. ASSISTED PATIENT IN REPOSITIONING IN BED AND AM CARE. SCHEDULED MEDICATIONS DUE GIVEN. NO DISTRESS NOTED. DENIES ANY PAIN AT THIS TIME. SAFETY MEASURES IN PLACE, CALL LIGHT WITHIN REACH. WILL CONTINUE TO MONITOR.
--- NOTE | 2017-08-13 11:13 | NUR ---
PATIENT LYING IN BED SLEEPING COMFORTABLY, AROUSABLE BY VOICE. NO DISTRESS NOTED. DENIES ANY PAIN. SAFETY MEASURES IN PLACE, CALL LIGHT WITHIN REACH. WILL CONTINUE TO MONITOR.
[2017-08-13 11:53] LABS: PROTHROMBIN TIME 17.5 secs (10.8-13.4)
--- NOTE | 2017-08-13 12:00 | NUR ---
PATIENT SLEEPING, AROUSABLE BY VOICE. NO DISTRESS NOTED. DENIES ANY PAIN. REFUSES TO EAT LUNCH AT THIS TIME HE WANTS TO CONTINUE SLEEPING. SAFETY MEASURES IN PLACE, CALL LIGHT WITHIN REACH. WILL CONTINUE TO MONITOR.
--- NOTE | 2017-08-13 14:02 | NUR ---
Social Service Note: SNF placement follow up: I left a message for admission coordinator at [facility] Per Belgica from [facility] , no continuous churn buttermaker beds. Per Julianna from [facility] , no senior living beds. Per Kaia from [facility] , no senior living beds. I left a message for admission coordinator at [facility] Per Rut from [facility] , no senior living beds. Per Cooper from [facility] , no senior living beds. I spoke with Ana at [facility] , she requested inquiry to be faxed, she provided fax . I faxed inquiry.
--- NOTE | 2017-08-13 14:41 | NUR ---
PATIENT LYING IN BED COMFORTABLY. REPOSITIONED PATIENT AND PERFORMED COMFORT MEASURES PER PATIENT LIKING. SAFETY MEASURES IN PLACE, CALL LIGHT WITHIN REACH. WILL CONTINUE TO MONITOR.
[2017-08-13 16:00] VITALS: BP 150/83
--- NOTE | 2017-08-13 16:57 | NUR ---
PATIENT SITTING IN POWERED WHEELCHAIR STROLLING THROUGHOUT [facility] HALLWAYS. SCHEDULED MEDICATION GIVEN. NO DISTRESS NOTED. DENIES ANY PAIN. SAFETY MEASURES IN PLACE, CALL LIGHT WITHIN REACH. WILL CONTINUE TO MONITOR.
[2017-08-13] MEDS ORDERED: WARFARIN 1 MG TAB PO SCH (17:00)
--- NOTE | 2017-08-13 18:12 | NUR ---
PATIENT SITTING IN POWERED WHEELCHAIR WATCHING TV AT BEDSIDE. NO DISTRESS NOTED. DENIES ANY PAIN. SAFETY MEASURES IN PLACE, CALL LIGHT WITHIN REACH. WILL CONTINUE TO MONITOR.
--- NOTE | 2017-08-13 19:18 | NUR ---
GAVE REPORT TO DOG BATHER NURSE FOR CONTINUITY OF CARE. PATIENT IN STABLE CONDITION.
--- NOTE | 2017-08-13 19:19 | NUR ---
PATIENT REPORT RECEIVED FROM MORNING NURSE AT BEDSIDE. PATIENT IS AWAKE AND ALERT. NO SIGNS AND SYMPTOMS OF DISTRESS NOTED. NO COMPLAINTS OF PAIN AT THIS TIME. PATIENT IS CURRENTLY IN WHEELCHAIR WATCHING TV. PLAN OF CARE DISCUSSED WITH PATIENT. PATIENT VERBALIZED UNDERSTANDING WILL CONTINUE TO MONITOR.
--- NOTE | 2017-08-13 20:45 | NUR ---
ASSISTED PATIENT WITH EATING DINNER, BRUSHING HIS TEETH AND WASHING HIS FACE. ALL NEEDS MET AT THIS TIME
--- NOTE | 2017-08-13 22:30 | NUR ---
ASSISTED PATIENT TO BED USING JEANNE LIFT WITH CNAS IN ASSISTANCE. POSITIONED PATIENT IN LEFT LATERAL POSITION. ALL NEEDS MET AT THIS TIME.
[2017-08-14] VITALS: BP 149/83
--- NOTE | 2017-08-14 00:30 | NUR ---
PATIENT HAD A MODERATE SIZED BOWEL MOVEMENT, AND ALSO VOIDED IN THE URINAL. PERICARE DONE. PADS CHANGED AND PATIENT REPOSITIONED IN RIGHT LATERAL POSITION. ALL NEEDS MET AT THIS TIME.
--- NOTE | 2017-08-14 03:40 | NUR ---
REPOSITIONED PATIENT TO LEFT LATERAL SIDE. PATIENT NOT SATISFIED, EVEN THOUGH WE TRIED SEVERAL TIMES TO POSITION HIM HOW WE WANTS. PATIENT STATED "SEE THIS LIGHT? SEE THIS HALO AROUND MY HEAD? YOU ARE MESSING WITH GOD'S MESSENGER"
--- NOTE | 2017-08-14 05:30 | NUR ---
ACCORDING TO CEMETERY WARDEN, PATIENT REFUSED MORNING LABS. CEMETERY WARDEN WILL TRY AGAIN LATER
--- NOTE | 2017-08-14 06:00 | NUR ---
PATIENT REPOSITIONED TO RIGHT LATERAL SIDE. ALL NEEDS MET
--- NOTE | 2017-08-14 07:23 | NUR ---
PATIENT REPORT GIVEN TO MORNING NURSE AT BEDSIDE FOR CONTINUITY OF CARE. PATIENT IS IN STABLE CONDITION
--- NOTE | 2017-08-14 07:24 | NUR ---
RECEIVED REPORT FROM GARDENING SUPERVISOR RN. PATIENT IS AAOX4, HAS NO SIGNS AND SYMPTOMS OF ACUTE DISTRESS NOTED AT THIS TIME. HAS NO IV SITE DUE TO PATIENTS REFUSAL. PATIENT IS QUADRIPLEGIC AND RESTING IN BED AT THIS TIME. DISCUSSED PLAN OF CARE WITH PATIENT AND HE VERBALIZED UNDERSTANDING. DENIES PAIN AT THIS TIME. WILL CONTINUE TO MONITOR.
[2017-08-14 08:00] VITALS: BP 156/89
[2017-08-14] MEDS: LACTOBACILLUS RHAMNOSUS GG 1 EACH CAP PO SCH (09:00)
[2017-08-14] MEDS: guaiFENesin 600 MG TABER PO SCH ×2 (09:00→20:46)
[2017-08-14] MEDS: MENTHOL/METHYL 10%-15% 114 GM TUBE TP SCH ×2 (09:00→20:55)
[2017-08-14] MEDS: FUROSEMIDE 20 MG TAB PO SCH (09:00)
[2017-08-14] MEDS: ATORVASTATIN 20 MG TAB PO SCH (09:00)
[2017-08-14] MEDS: HYDRAGUARD CREAM TP SCH (09:00)
[2017-08-14] MEDS: PSEUDOEPHEDRINE 30 MG TAB PO SCH ×2 (09:14→20:46)
[2017-08-14] MEDS: amLODIPine 5 MG TAB PO SCH (09:15)
[2017-08-14] MEDS: LISINOPRIL 10 MG TAB PO SCH (09:15)
[2017-08-14] MEDS ORDERED: CLINICAL MONITORING MC PRN (09:15)
[2017-08-14] MEDS: DOCUSATE SODIUM 100 MG GELCAP PO PRN (09:20)
--- NOTE | 2017-08-14 10:07 | NUR ---
PATIENT ONLY WANTED TO TAKE HIS BLOOD PRESSURE MEDICATION, SUDAFED, BENGAY, COLACE, AND HYRDAGUARD. STATED THAT HE DIDN'T WANT TO TAKE ALL THESE EXTRA MEDICATIONS THAT ARE PRESCRIBED. WILL CONTINUE TO MONITOR.
--- NOTE | 2017-08-14 10:20 | NUR ---
REPOSITIONED PATIENT WITH BOTTLE AND GLASS INSPECTOR, PLACED PILLOWS HOW PATIENT WANTED THEM. PLACED HIS LEGS AND ARMS HOW HE WANTED. WANTED ME TO BRUSH HIS HAIR AND PUSH HARD SO I CAN SCRATCH HIS SCALP WITH THE BRUSH. WANTED ME TO HELP HIM FIND A CHANNEL TO WATCH, 10 MINUTES LATER HE SETTLED ON A CHANNEL. ALL NEEDS MET AT THIS TIME. WILL CONTINUE TO MONITOR.
--- NOTE | 2017-08-14 11:40 | NUR ---
PATIENT WANTED TO BE TURNED ON HIS RIGHT SIDE. PLACED THE PILLOWS UNDER HIM HOW HE WANTED TO. CLAIMED HE COULDN'T SEE THE TV NOW SO WANTED ME TO MOVE THE BED SO HE CAN WATCH TV. WANTED HIS HANDS FIXED. WANTED ME TO BRUSH HIS HAIR AGAIN. WANTED ME TO CHANGE THE CHANNEL AGAIN. STATED THAT HE WON'T EAT THE LUNCH THAT THEY BRING, SO TO ORDER HIM A SANDWICH.
--- NOTE | 2017-08-14 14:39 | NUR ---
CM NOTE CONCURRENT REVIEW FAXED TO [facility] / FAX# [phone], ATTN: IRENE #[phone]
[2017-08-14] MEDS ORDERED: SODIUM PHOSPHATE 118 ML ENEM RC SCH (15:11)
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
--- NOTE | 2017-08-14 15:58 | NUR ---
CM NOTE - LM RE. F/U AT [facility] / C: [phone] - PER BARBARA, NO BEDS AVAILABLE AT [facility] - PER HILTON, NO BEDS AVAILABLE AT [facility] - PER MILENA, NO BEDS AVAILABLE AT [facility] FAXED TO [facility] / FAX# [phone], C: [phone] - PER ANA ROSA, NO BEDS AVAILABLE AT [facility] - PER REINA, NO BEDS AVAILABLE AT [facility] - PER GIL, NO BEDS AVAILABLE AT [facility] - PER JETHRO, NO BEDS AVAILABLE AT [facility] - PER JONAS, NO BED AVAILABLE AT [facility]
[2017-08-14 16:00] VITALS: BP 95/56
--- NOTE | 2017-08-14 17:00 | NUR ---
PRESIDENT [employer] AND STUDENT IN THE ROOM WITH ME TO TRANSFER PATIENT TO HIS MOTORIZED WHEELCHAIR VIA JEANNE LIFT. GOT PATIENT IN CHAIR AND SPENT AN EXTRA 30 MINUTES ADJUSTING HIM TO HOW HE WANTED TO BE FIXED. PATIENT TOLERATED WELL, NO SIGNS AND SYMPTOMS OF ACUTE DISTRESS AT THIS TIME. WILL CONTINUE TO MONITOR.
[2017-08-14] MEDS ORDERED: WARFARIN 5 MG TAB PO SCH (19:04)
--- NOTE | 2017-08-14 19:41 | NUR ---
ENDORSED PATIENT TO CASHIER TUBE ROOM NURSE FOR CONTINUITY OF CARE. PATIENT IN STABLE CONDITION.
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
--- NOTE | 2017-08-14 20:00 | NUR ---
Patient's Plan of Care was discussed and reviewed with NEWS PRODUCTION ASSISTANT: Garcia VITALE
--- NOTE | 2017-08-14 20:20 | NUR ---
BROTHER CAME AND BROUGHT PIZZA AND CHICKEN, BOTH ATE.
--- NOTE | 2017-08-14 20:46 | NUR ---
DUE PO MEDICATIONS GIVEN. QUESTIONING WHY COUMADIN WAS INCREASED FROM 3 MG[address] TO [address] POTTS AND WAS INFORMED OF PATIENT CONCERNED. EXPLAINED TO PATIENT PER ADVISED BY DOCTOR TO TAKE IT FOR NOW AND TOMORROW IT CAN BE ADJUSTED DEPENDING ON AM LAB RESULT. PATIENT UNDERSTAND AND COUMADIN WAS GIVEN.
--- NOTE | 2017-08-14 22:20 | NUR ---
BROTHER LEFT AND PATIENT WAS PUT IN BED USING HOLIER LIFT WITH THE HELP OF FOUR PERSONS. ASSISTED TO LIE ON SELF SIDE AND FLEET ENEMA GIVEN. INSTRUCTED PATIENT TO TRY TO RETAIN LONG HE CAN AND NOT TRY TO PUSH OUT AT ONCE THE FLUID, SO IT WILL WORK BETTER, AGREED.
--- NOTE | 2017-08-14 23:45 | NUR ---
HAD A LARGE SOFT BM, CLEANSED AND REPOSITIONED IN BED WITH PILLOWS. LOTS OF REQUEST FROM NURSES TO DO FOR HIM. MASSAGING BACK, PUTTING LOTION, COMBING HAIR, CLEANING FACE, PUTTING CREAM ON NOSE AND FACE, BUTTOCKS, HIPS AND UPPER LOWER EXTREMITY. ALL NEEDS ATTENDED.
[2017-08-15] VITALS: BP 108/58
--- NOTE | 2017-08-15 00:30 | NUR ---
SLEEPING COMFORTABLY IN BED.
--- NOTE | 2017-08-15 02:00 | NUR ---
REPOSITIONED IN BED WITH PILLOWS FOR COMFORT.
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
--- NOTE | 2017-08-15 07:00 | NUR ---
RESTING COMFORTABLY IN BED. RESPIRATION EVEN AND UNLABORED. ALL NEEDS ATTENDED. WILL ENDORSE TO AM NURSE FOR CONTINUITY OF CARE.
--- NOTE | 2017-08-15 07:15 | NUR ---
ENDORSED TO LEXA WILCOX FOR CONTINUITY OF CARE.
--- NOTE | 2017-08-15 07:16 | NUR ---
RECEIVED REPORT FROM FABRICATION MANAGER RN. PATIENT IS AAOX4, HAS NO SIGNS AND SYMPTOMS OF ACUTE DISTRESS NOTED AT THIS TIME. HAS NO IV SITE DUE TO PATIENTS REFUSAL. PATIENT IS ASKING TO ADJUST HIS LEG, TELLING US TO STOP TALKING AND DO IT. THAT HE HAS A HALO ON AND GOD IS PROTECTING HIM. THAT WE WILL BE PUNISHED FOR NOT HELPING HIM. THAT WE ARE GOING TO BE DAMNED TO HELL. TO HELP A DISABLED MAN. THAT WE NEED TO STOP TALKING AND IGNORING HIM AND TO HELP HIM ADJUST HIS LEG NOW. AT BEDSIDE ASKING PATIENT TO JUST GIVE IS 2 MINUTES AND WE WILL ADJUST HIS LEG. WILL CONTINUE TO MONITOR.
[2017-08-15 08:00] VITALS: BP 141/81
[2017-08-15] MEDS ORDERED: diphenhydrAMINE 2% 30 GM TUBE TP PRN (08:35)
[2017-08-15] MEDS: guaiFENesin 600 MG TABER PO SCH ×2 (09:00→20:41)
[2017-08-15] MEDS: ATORVASTATIN 20 MG TAB PO SCH (09:00)
[2017-08-15] MEDS: HYDRAGUARD CREAM TP SCH (09:00)
[2017-08-15] MEDS: LACTOBACILLUS RHAMNOSUS GG 1 EACH CAP PO SCH (09:00)
[2017-08-15] MEDS: MENTHOL/METHYL 10%-15% 114 GM TUBE TP SCH ×2 (09:00→20:41)
[2017-08-15] MEDS: FUROSEMIDE 20 MG TAB PO SCH (09:00)
[2017-08-15] MEDS: LISINOPRIL 10 MG TAB PO SCH (09:51)
[2017-08-15] MEDS: PSEUDOEPHEDRINE 30 MG TAB PO SCH ×2 (09:51→20:41)
[2017-08-15] MEDS: amLODIPine 5 MG TAB PO SCH (09:52)
--- NOTE | 2017-08-15 12:40 | NUR ---
PT TURNED AND POSITIONED FOR COMFORT, ALL REQUESTS ACCOMMODATED, CALL MCKEON WITHIN REACH, WILL CONTINUE TO MONITOR.
--- NOTE | 2017-08-15 13:06 | NUR ---
ENDORSED PATIENT TO LEXA VIVAR FOR CONTINUITY OF CARE. PATIENT IN STABLE CONDITION.
--- NOTE | 2017-08-15 13:09 | NUR ---
REPORT RECEIVED FROM PREVIOUS SHIFT, PT LYING IN RIGHT SIDE WATCHING TV, RESP EVEN UNLABORED, SKIN WARM DRY COLOR WNL, NO IMMEDIATE NEEDS IDENTIFIED, CALL BUTTON UNDER HIS FACE, PT TRIED TO PUSH, CALL LIGHT FUNCTIONING WELL, WILL CONTINUE TO MONITOR.
--- NOTE | 2017-08-15 14:16 | NUR ---
08/15/17 RD FOLLOW UP COMPLETED. PLEASE REFER TO NUTRITION ASSESSMENT UNDER CARE ACTIVITY FOR ESTIMATED NUTRITIONAL NEEDS. CONTINUE 2 GM SODIUM DIET TOLERATED. NURSING AND DIETARY STAFF TO ENCOURAGE INCREASED PO INTAKE TOLERATED. RD TO FOLLOW-UP IN 5-7 DAYS PATIENT IS LOW RISK. FRANKLYN SINHA, FRANTZ
--- NOTE | 2017-08-15 15:20 | NUR ---
POSITION CHANGED, SUPPORT PILLOWS AROUND PT FOR COMFORT, CALL MCKEON WITHIN REACH, WILL CONTINUE TO MONITOR.
--- NOTE | 2017-08-15 16:08 | NUR ---
FAXED CONCURRENT REVIEW TO [facility] [phone]
[2017-08-15 16:45] VITALS: BP 114/73
--- NOTE | 2017-08-15 17:47 | NUR ---
PT TRANSFERRED TO WHEELCHAIR WITH JEANNE LIFT, POSITIONED IN WHEELCHAIR, ALL NEEDS MET, STUDENT NURSE AT BEDSIDE TO ASSIST WITH FEEDING.
--- NOTE | 2017-08-15 19:06 | NUR ---
REPORT GIVEN TO FURNACE HAND NURSE, PT SITTING UP IN WHEELCHAIR IN NO ACUTE DISTRESS.
--- NOTE | 2017-08-15 19:07 | NUR ---
RECEIVED BEDSIDE REPORT FROM DAY SHIFT NURSE GHAZALA RN, PT STABLE, NO DISTRESS NOTED, SITTING ON PT OWN WHEELCHAIR, PT ON ROOM AIR, NO SOB, FAMILY BY BEDSIDE, INITIAL ASSESSMENT DONE, ALL SAFETY PRECAUTION MET, WILL CONTINUE TO MONITOR.
--- NOTE | 2017-08-15 20:41 | NUR ---
DUE MEDICATION GIVEN, PT TOLERATED WELL, NO DISTRESS NOTED, REPOSITIONED PT, PT STABLE, TOLERATED WELL, CALL LIGHT WITHIN REACH, WILL CONTINUE TO MONITOR.
[2017-08-16] VITALS: BP 119/76
--- NOTE | 2017-08-16 00:35 | NUR ---
REPOSITIONED PT, PT TOLERATED WELL, NO DISTRESS NOTED, CALL LIGHT WITHIN REACH, WILL CONTINUE TO MONITOR.
--- NOTE | 2017-08-16 02:10 | NUR ---
REPOSITIONED PT, PT TOLERATED WELL, NO DISTRESS NOTED, CALL LIGHT WITHIN REACH, WILL CONTINUE TO MONITOR.
--- NOTE | 2017-08-16 04:20 | NUR ---
CHANGED AND REPOSITIONED PT, PT TOLERATED WELL, NO DISTRESS NOTED, CALL LIGHT WITHIN REACH, WILL CONTINUE TO MONITOR.
--- NOTE | 2017-08-16 05:42 | NUR ---
CHECKED ON PT, PT SLEEPING, NO DISTRESS NOTED, CALL LIGHT WITHIN REACH, WILL CONTINUE TO MONITOR.
[2017-08-16 07:22] LABS: PHOSPHORUS 3.1 mg/dL (2.5-4.9)
--- NOTE | 2017-08-16 07:26 | NUR ---
ENDORSED PLAN OF CARE TO DAY SHIFT NURSE [place] RN, PT STABLE, NO DISTRESS NOTED, CALL LIGHT WITHIN REACH.
--- NOTE | 2017-08-16 07:27 | NUR ---
RECEIVED BEDSIDE REPORT FROM RUBBER ROLLER GRINDER RN AT BEDSIDE FOR CONTINUITY OF CARE, PT STABLE, NO DISTRESS NOTED, PATIENT LAYING IN BED. PT ON ROOM AIR, NO SOB, NO IV ACCESS. INITIAL ASSESSMENT DONE, ALL SAFETY PRECAUTION MET, CALL LIGHT WITHIN REACH, WILL CONTINUE TO MONITOR.
[2017-08-16 07:33] LABS: ANION GAP 12.7 (8-16); CARBON DIOXIDE 23.9 mmol/L (21-32); CREATININE 0.3 mg/dL (0.7-1.3); POTASSIUM 3.6 mmol/L (3.5-5.1)
[2017-08-16 07:34] LABS: PROTHROMBIN TIME 20.2 secs (10.8-13.4)
[2017-08-16 07:50] LABS: BASOPHILS # (AUTO) 0.4 K/uL (0.00-0.22); BASOPHILS % (AUTO) 4.7 % (0.0-2.0); EOSINOPHILS # (AUTO) 0.2 K/uL (0-0.4); EOSINOPHILS % (AUTO) 2.6 % (0.0-4.0); HEMATOCRIT 46.5 % (36-52); HEMOGLOBIN 15.5 g/dL (12.0-18.0); LYMPHOCYTES # (AUTO) 2.6 K/uL (2.0-11.5); LYMPHOCYTES % (AUTO) 29.3 % (20.5-51.1); MEAN CORPUSCULAR HEMOGLOBIN 30 pg (27-31); MEAN CORPUSCULAR HGB CONC 33 g/dL (33-37); MEAN CORPUSCULAR VOLUME 91 fL (80-94); MONOCYTES # (AUTO) 0.6 K/uL (0.8-1.0); MONOCYTES % (AUTO) 7.2 % (1.7-9.3); NEUTROPHILS # (AUTO) 5.1 K/uL (1.8-7.7); NEUTROPHILS % (AUTO) 56.2 % (42.2-75.2); PLATELET COUNT (AUTO) 256 K/uL (140-450); RED BLOOD CELL COUNT(AUTO) 5.13 MIL/uL (4.20-6.10); RED CELL DISTRIBUTION WIDTH 12.9 % (11.6-13.7); WHITE BLOOD COUNT (AUTO) 8.9 K/uL (4.8-10.8)
[2017-08-16 08:00] VITALS: BP 168/88
--- NOTE | 2017-08-16 08:17 | NUR ---
CARMENCITA FARRAR ON 08/15/17 SPOKE WITH MICHAEL AT [facility]. FAXED INQUIRY TO [phone]. PHONE [phone]. CALLED MICHAEL AT [facility] THIS AM AND SHE SAID SHE DIDN'T GET THE INQUIRY. SHE ASKED ME TO REFAX TO HER FAX NUMBER, , WHICH I DID.
--- NOTE | 2017-08-16 08:27 | NUR ---
CALLED [facility], [phone] AND LEFT MESSAGE CALLED [facility],[phone], LEFT MESSAGE.
--- NOTE | 2017-08-16 08:35 | NUR ---
PATIENT HAD A BOWEL MOVEMENT. PATIENT CLEANED AND CHANGED AND REPOSITIONED FOR COMFORT. PATIENT NOW RESTING IN BED. NO SIGNS OF DISTRESS OR SOB NOTED. PATIENT DENIES PAIN AT THIS TIME, SAFETY PRECAUTION IN PLACE, CALL LIGHT WITHIN REACH. WILL CONTINUE TO MONITOR PATIENT.
[2017-08-16] MEDS: ATORVASTATIN 20 MG TAB PO SCH (09:00)
[2017-08-16] MEDS: FUROSEMIDE 20 MG TAB PO SCH (09:00)
[2017-08-16] MEDS: LACTOBACILLUS RHAMNOSUS GG 1 EACH CAP PO SCH (09:00)
[2017-08-16] MEDS: MENTHOL/METHYL 10%-15% 114 GM TUBE TP SCH ×2 (09:27→21:52)
[2017-08-16] MEDS: HYDRAGUARD CREAM TP SCH (09:28)
--- NOTE | 2017-08-16 10:19 | NUR ---
RECEIVED A CALL FROM MICHAEL FROM [facility]. SHE IS UNABLE TO TAKE THIS PATIENT.
[2017-08-16] MEDS: PSEUDOEPHEDRINE 30 MG TAB PO SCH ×2 (11:40→21:51)
[2017-08-16] MEDS: LISINOPRIL 10 MG TAB PO SCH (11:40)
[2017-08-16] MEDS: guaiFENesin 600 MG TABER PO SCH ×2 (11:40→21:51)
[2017-08-16] MEDS: amLODIPine 5 MG TAB PO SCH (11:40)
--- NOTE | 2017-08-16 11:40 | NUR ---
ORDERED MEDICATIONS ADMINISTERED. PATIENT TOLERATED THEM WELL. PATIENT RESTING IN BED, SHOWS NO SIGNS OF DISTRESS. DENIES PAIN AT THE MOMENT. SAFETY PRECAUTION IN PLACE, CALL LIGHT WITHIN REACH. WILL CONTINUE TO MONITOR PATIENT.
--- NOTE | 2017-08-16 13:26 | NUR ---
MARIN INQUIRY TO TRACY FROM [facility]. PHONE [phone]
--- NOTE | 2017-08-16 15:25 | NUR ---
PATIENT SLEEPING, NO SIGNS OF DISTRESS OR SOB NOTED. SAFETY PRECAUTION IN PLACE, CALL LIGHT WITHIN REACH. WILL CONTINUE TO MONITOR PATIENT.
[2017-08-16 16:00] VITALS: BP 115/74
[2017-08-16] MEDS ORDERED: WARFARIN 1 MG TAB PO SCH (17:00)
--- NOTE | 2017-08-16 17:00 | NUR ---
ORDERED MEDICATION ADMINISTERED. EDUCATION GIVEN ABOUT COUMADIN. PATIENT VERBALIZED UNDERSTANDING. PATIENT TOLERATED IT WELL. PATIENT RESTING IN BED, SHOWS NO SIGNS OF DISTRESS. DENIES PAIN AT THE MOMENT. SAFETY PRECAUTION IN PLACE, CALL LIGHT WITHIN REACH. WILL CONTINUE TO MONITOR PATIENT.
--- NOTE | 2017-08-16 17:25 | NUR ---
PATIENT HAD A BOWEL MOVEMENT. PATIENT CLEANED AND CHANGED AND REPOSITIONED FOR COMFORT. PATIENT NOW IN HIS MOTORED WHEELCHAIR. NO SIGNS OF DISTRESS OR SOB NOTED. PATIENT DENIES PAIN AT THIS TIME, SAFETY PRECAUTION IN PLACE, CALL LIGHT WITHIN REACH. WILL CONTINUE TO MONITOR PATIENT.
--- NOTE | 2017-08-16 19:35 | NUR ---
PATIENT REPORT GIVEN TO TRACTOR TECHNICIAN NURSE AT BEDSIDE FOR CONTINUITY OF CARE. PATIENT IN STABLE CONDITION.
--- NOTE | 2017-08-16 19:40 | NUR ---
RECEIVED REPORT FROM DAY SHIFT NURSE, PATIENT IS IN HIS WHEEL CHAIR, NO S/S OF DISTRESS NOTED, RESPIRATION EVEN AND UNLABORED, ON ROOM AIR. NO IV ACCESS NOTED, SEED TECHNICIAN WILL ASSIST PATIENT TO EAT DINNER. PLAN OF CARE DISCUSSED, PATIENT VERBALIZED UNDERSTANDING, SAFETY MEASURE ENSURED, WILL CONTINUE TO MONITOR.
[2017-08-16] MEDS ORDERED: WARFARIN 5 MG TAB PO SCH (21:00)
--- NOTE | 2017-08-16 22:30 | NUR ---
ASSISTED MANUFACTURING RECRUITER TRANSFERRED PATIENT BACK TO BED, PATIENT WAS YELLING AND CURSING BECAUSE THE TELE MONITOR ON THE NURSE'S STATION WAS BEEPING. PATIENT WANTED ME TO SHUT DOWN THE MONITOR. INFORMED HIM THAT THE MONITOR WAS THERE TO ALARM THE NURSES OF OTHER PATIENTS' ABNORMAL HEART RHYTHM. PATIENT YELLED," I DON'T CARE, LET THEM . SHUT THE MONITOR OFF. THIS PLACE IS A SHIT HOLE." TOLD THE PATIENT I WOULD CLOSE HIS DOOR. SAFETY MEASURE ENSURED, WILL FREQUENT CHECK ON PATIENT.
[2017-08-17] VITALS: BP 131/69
--- NOTE | 2017-08-17 00:23 | NUR ---
REPOSITIONED PATIENT WITH THE CHILDBIRTH EDUCATOR, PATIENT STILL COMPLAINED AND CURSING ABOUT THE TELE MONITOR ALARM. ALL NEEDS ATTENDED TO. WILL FREQUENT CHECK ON PATIENT.
--- NOTE | 2017-08-17 02:25 | NUR ---
REPOSITIONED PATIENT WITH THE CLAIMS ACCOUNT MANAGER, PATIENT COMPLAINED AND CURSING ABOUT THE TELE MONITOR ALARM AND SAID," I WILL LEAVE THIS PLACE TOMORROW, THE NOISE IS RIDICULOUS." ALL NEEDS ATTENDED TO. WILL FREQUENT CHECK ON PATIENT.
--- NOTE | 2017-08-17 04:10 | NUR ---
PATIENT WAS YELLING, CHECKED ON PATIENT, PATIENT WANTED MICROPHONE TO BE PLACED CLOSE TO HIS MOUTH, ADJUSTED THE MICROPHONE HE DEMANDED. PATIENT ASKED TO CHANGE THE TV CHANNEL FOR HIM, SPEND 10MINS CHANGED THE CHANNEL FOR HIM, THEN HE ASKED TO PUT CELLPHONE NEXT TO HIM AND FIND [employer] CHANNEL FOR HIM, SPEND ANOTHER 10 MINS THERE TO ADJUST THE CHANNEL ASKED. PATIENT THEN ASKED TO PUT CHAPSTICK ON HIS LIPS, DID HE ASKED, THEN PATIENT SAID," MY FACE IS ITCHING, USE THE WASH CLOTH AND WARM WATER, CLEAN MY FACE AND MY EYES." CLEANED HIS FACE, EYES AND NECK. PATIENT YELLING," YOU DON'T KNOW HOW TO DO THE JOB, MY FACE STILL ITCHING. YOU SHOULD GO TO [facility]. YOU SHOULD BE FIRED. I WILL REPORT YOU, I WILL TELL THEM THAT THE CONSTRUCTION PIT WORKER DID NOT KNOW HOW TO DO HER JOB, AND YOU DID NOT CARE ABOUT PATIENT."
--- NOTE | 2017-08-17 04:46 | NUR ---
CURSING AT LACROSSE PLAYER AND ME," YOU WILL BE IN SENIOR CARE THIS LIFE AND NEXT LIFE, YOU GUYS DON'T KNOW HOW TO DO YOUR JOBS, YOU SHOULD BE IN SENIOR CARE. YOU WILL ALL BE HOMELESS, AND I WILL BUY YOU FOOD, YOU STUPID SHIT." REPOSITIONED PATIENT WITH THE LACROSSE PLAYER AND OTHER NURSE. CALL LIGHT WITHIN REACH, SAFETY MEASURE ENSURED, WILL CONTINUE TO MONITOR.
--- NOTE | 2017-08-17 05:20 | NUR ---
PATIENT CALLED [facility] REPORTED THAT THE NURSES HERE DID NOT TAKE CARE OF HIM, AND DID NOT DO THE JOBS. INFORMED CHARGE NURSE ANGELA CHARGE NURSE TALKED WITH THE STAFF FROM [facility].
--- NOTE | 2017-08-17 07:10 | NUR ---
REPORT GIVEN TO DAY SHIFT RN, PATIENT IS IN STABLE CONDITION.
--- NOTE | 2017-08-17 07:30 | NUR ---
RECEIVED REPORT FROM PROPOSAL SPECIALIST NURSE, PATIENT IS IN AAOX3, RESTING BED, NO S/S OF DISTRESS NOTED, RESPIRATION EVEN AND UNLABORED, ON ROOM AIR. NO IV ACCESS NOTED, VITALS TAKEN, PMP PROJECT MANAGER WILL ASSIST PATIENT TO EAT BREAKFAST. PLAN OF CARE DISCUSSED, PATIENT VERBALIZED UNDERSTANDING, SAFETY MEASURE ENSURED, WILL CONTINUE TO MONITOR.
[2017-08-17 08:00] VITALS: BP 158/93
--- NOTE | 2017-08-17 08:40 | NUR ---
BED BATH GIVEN. HAIR COMBED. HYDRAGAURD APPLIED TO BUTTOCK. BENGAY APPLIED TO TAILBONE. Addendum: 08/17/17 at 1948 by Jason Piña RN SKIN INTACT.
[2017-08-17] MEDS: MENTHOL/METHYL 10%-15% 114 GM TUBE TP SCH ×2 (09:00→21:22)
[2017-08-17] MEDS: LACTOBACILLUS RHAMNOSUS GG 1 EACH CAP PO SCH (09:00)
[2017-08-17] MEDS: FUROSEMIDE 20 MG TAB PO SCH (09:00)
[2017-08-17] MEDS: HYDRAGUARD CREAM TP SCH (09:00)
[2017-08-17] MEDS: ATORVASTATIN 20 MG TAB PO SCH (09:00)
--- NOTE | 2017-08-17 09:55 | NUR ---
PT WAS REPOSITIONED TO FACE THE DOOR.
[2017-08-17] MEDS: guaiFENesin 600 MG TABER PO SCH ×2 (10:25→21:21)
[2017-08-17] MEDS: amLODIPine 5 MG TAB PO SCH (10:25)
[2017-08-17] MEDS: PSEUDOEPHEDRINE 30 MG TAB PO SCH ×2 (10:27→21:21)
[2017-08-17] MEDS: LISINOPRIL 10 MG TAB PO SCH (10:27)
--- NOTE | 2017-08-17 11:50 | NUR ---
PT IS REPOSITIONED TO FACE THE WINDOW. ACCIDENT REPORT CLERK WILL FEED PT LUNCH.
--- NOTE | 2017-08-17 14:24 | NUR ---
CM NOTE - PER ELSA FROM [facility], NO BEDS AVAILABLE - PER ANAIS FROM [facility], NO BEDS AVAILABLE - PER DINA FROM [facility], NO BEDS AVAILABLE - PER HALLIE FROM [facility], NO BEDS AVAILABLE - INQUIRY FAXED TO MELLISA FROM [facility] / FAX# [phone] Addendum: 08/17/17 at 1448 by Ed Montes RN - PER MICHAEL FROM [facility], UNABLE TO TAKE PATIENT.
--- NOTE | 2017-08-17 15:50 | NUR ---
CALLED PHARM, CONFIRMED IT'S OK TO GIVEN WARFARIN 3MG TODAY. BUT TOMORROW PT NEEDS INR DRAW IN ORDER TO RECEIVE WARFARIN.
[2017-08-17 16:00] VITALS: BP 132/66
--- NOTE | 2017-08-17 16:30 | NUR ---
TRANSFER PT TO WHEELCHAIR WITH JEANNE LIFT. PT TOLERATED WELL. PT WAS SHAVED WITH ELECTRIC SHAVER. ANTI ITCHING CREAM APPLIED TO FACE AND NOSE.
[2017-08-17] MEDS ORDERED: WARFARIN 1 MG TAB PO SCH (17:00)
--- NOTE | 2017-08-17 19:30 | NUR ---
ENDORSED PT TO OPERATIONS EXECUTIVE RN. PT IS IN STABLE CONDITION.
--- NOTE | 2017-08-17 19:31 | NUR ---
RECEIVED PT FROM DAY SHIFT NURSE TOMMIE-RN. PT IN AUTOMATIC WHEELCHAIR IN ROOM WATCHING TV. AOX4, ON ROOM AIR WITH IV PRESENT. PT TOTAL ASSIST, QUADRIPLEGIC. NO S/S OF RESPIRATORY DISTRESS OR DISCOMFORT NOTED AT THIS TIME. WILL CONTINUE TO MONITOR.
--- NOTE | 2017-08-17 21:22 | NUR ---
PT TOLERATED MEDICATIONS WELL. NO S/S OF RESPIRATORY DISTRESS OR DISCOMFORT NOTED AT THIS TIME. WILL CONTINUE TO MONITOR.
--- NOTE | 2017-08-17 23:46 | NUR ---
ASSISTED PT BACK INTO BED WITH HELP FROM BALWINDER. WAS C/O ITCHING ON HIS BACK AND FACE. LOTION WAS APPLIED REQUESTED. WAS MADE COMFORTABLE AND NOW RESTING IN BED. BED IN LOWEST POSITION. NO S/S OF RESPIRATORY DISTRESS OR DISCOMFORT NOTED AT THIS TIME. CALL BUTTON UNDER CHEEK. WILL CONTINUE TO MONITOR.
[2017-08-18] VITALS: BP 115/57
--- NOTE | 2017-08-18 02:00 | NUR ---
ASSISTED PT WITH HELP FROM BALWINDER TO BE TURNED TOWARDS LEFT SIDE. MADE PT COMFORTABLE POSSIBLE. PT ASKED FOR TEETH TO BE BRUSHED AND COMPLIED. NO S/S OF RESPIRATORY DISTRESS OR DISCOMFORT NOTED AT THIS TIME. PT C/O THE BEEPING NOISES AT THE NURSES STATION. REQUESTING TO BE CHECKED UP ON EVERY 15 MINUTES. BED IN LOWEST POSITION. CALL BUTTON WITHIN REACH. WILL CONTINUE TO MONITOR PT FREQUENTLY.
--- NOTE | 2017-08-18 07:33 | NUR ---
ENDORSED PT TO DAY SHIFT NURSE ROBERT IN STABLE CONDITION FOR CONTINUITY OF CARE.
[2017-08-18 07:34] LABS: BASOPHILS # (AUTO) 0.3 K/uL (0.00-0.22); BASOPHILS % (AUTO) 3.8 % (0.0-2.0); EOSINOPHILS # (AUTO) 0.2 K/uL (0-0.4); EOSINOPHILS % (AUTO) 2.6 % (0.0-4.0); HEMATOCRIT 46.3 % (36-52); HEMOGLOBIN 15.4 g/dL (12.0-18.0); LYMPHOCYTES # (AUTO) 2.3 K/uL (2.0-11.5); LYMPHOCYTES % (AUTO) 30.9 % (20.5-51.1); MEAN CORPUSCULAR HEMOGLOBIN 30 pg (27-31); MEAN CORPUSCULAR HGB CONC 33 g/dL (33-37); MEAN CORPUSCULAR VOLUME 90.3 fL (80-94); MONOCYTES # (AUTO) 0.5 K/uL (0.8-1.0); MONOCYTES % (AUTO) 6.6 % (1.7-9.3); NEUTROPHILS # (AUTO) 4.2 K/uL (1.8-7.7); NEUTROPHILS % (AUTO) 56.1 % (42.2-75.2); PLATELET COUNT (AUTO) 251 K/uL (140-450); RED BLOOD CELL COUNT(AUTO) 5.13 MIL/uL (4.20-6.10); RED CELL DISTRIBUTION WIDTH 12.8 % (11.6-13.7); WHITE BLOOD COUNT (AUTO) 7.5 K/uL (4.8-10.8)
--- NOTE | 2017-08-18 07:40 | NUR ---
RECEIVED PT REPORT AT BEDSIDE FROM NIGHT NURSE, PT IS AAOX4. NO S/S OF ACUTE DISTRESS. PT ON RA. NO SOB. NO COMPLAINTS OF PAIN AT THIS TIME. NO IV ACCESS. SKIN INTACT, WITH NOTED +4 PITTING EDEMA ON BLE/BUE. PATIENT IS QUADRAPLEGIC. DISCUSSED PATIENT POC FOR TODAY; HOWEVER PATIENT WANTS TO GO AMA. DR. DUONG AND DR ROSAS ARE SPEAKING WITH PATIENT REGARDING RISKS FOR LEAVING AMA. BED LOWERED WITH CALL LIGHT WITHIN REACH. SAFETY AND FALL PRECAUTIONS ARE IN PLACE.
[2017-08-18 07:49] LABS: MAGNESIUM 1.9 mg/dL (1.8-2.4); PHOSPHORUS 3.2 mg/dL (2.5-4.9)
[2017-08-18 07:50] LABS: PROTHROMBIN TIME 17.5 secs (10.8-13.4)
[2017-08-18 07:52] LABS: ANION GAP 12.7 (8-16); CARBON DIOXIDE 24.8 mmol/L (21-32); CREATININE 0.3 mg/dL (0.7-1.3); POTASSIUM 3.5 mmol/L (3.5-5.1)
[2017-08-18 08:00] VITALS: BP 156/95
--- NOTE | 2017-08-18 08:30 | NUR ---
PATIENT REQUESTED TO BE TURNED AND I HELPED THE MANAGER PARTYMaryan DALLAS. PATIENT IS ON THE LEFT SIDE WHEN WE CAME, HE NEEDS TO BE TURNED ON THE OPPOSITE SIDE, PATIENT IS REFUSING AND HE WANTS TO WATCH TV, HIS CURSING AND SAYING THAT WE DON'T KNOW WHAT WE'RE DOING. HE SAID HE WANTS TO GO MD MIGUEL ANGEL AWARE.
--- NOTE | 2017-08-18 08:45 | NUR ---
CALLED [facility] [phone]. LEFT MESSAGE CALLED [facility] FAXED INQUIRY TO [phone] CALLED [facility], LEFT MESSAGE CALLED [facility], [phone]. LEFT MESSAGE CALLED [facility] AND SPOKE WITH LANDON MONTOYA.
[2017-08-18] MEDS: LISINOPRIL 10 MG TAB PO SCH (08:58)
[2017-08-18] MEDS: ATORVASTATIN 20 MG TAB PO SCH (08:58)
[2017-08-18] MEDS: LACTOBACILLUS RHAMNOSUS GG 1 EACH CAP PO SCH (08:58)
[2017-08-18] MEDS: FUROSEMIDE 20 MG TAB PO SCH (08:58)
[2017-08-18] MEDS: guaiFENesin 600 MG TABER PO SCH (08:59)
[2017-08-18] MEDS: MENTHOL/METHYL 10%-15% 114 GM TUBE TP SCH (08:59)
[2017-08-18] MEDS: PSEUDOEPHEDRINE 30 MG TAB PO SCH (08:59)
[2017-08-18] MEDS: amLODIPine 5 MG TAB PO SCH (08:59)
[2017-08-18] MEDS: HYDRAGUARD CREAM TP SCH (08:59)
--- NOTE | 2017-08-18 09:25 | NUR ---
PATIENT IS YELLING SAYING, "I WANT TO LEAVE NOW, PLEASE GOD. I WANT TO LEAVE NOW." REPEATEDLY. PATIENT WAS ASKED IF HE WOULD LIKE HIS MORNING MEDICATIONS, PATIENT STATED, "ONLY THE BP MEDICATIONS, I NEED TO BE CLEANED UP AND DRESSED." PATIENT SWALLOWED MEDICATIONS WITHOUT DIFFICULTY. PATIENT WAS GIVEN A BED BATH, AND APPLIED HYDRAGAURD AND BENGAY ON PATIENT'S SACRUM. PATIENT WAS THEN DRESSED WITH THE ASSISTANCE OF KIMBER LINDQUIST AND AXEL AWAD. APPLIED A CONDOM CATHETER TO PATIENT. USING JEANNE LIFT, PATIENT WAS PLACE IN HIS WHEELCHAIR. [facility] WAS CALLED AND STATED THEY WILL BE AT THE [facility] AT 1100.
--- NOTE | 2017-08-18 10:50 | NUR ---
PATIENT IS UNABLE TO SIGN AMA PAPERWORK BECAUSE PATIENT IS QUADRIPLEGIC AND HAS NO MOTOR FUNCTION ON BUE. PATIENT LEFT AMA AND IS OFF UNIT WAITING FOR TRANSPORTATION IN THE FRONT LOBBY.
--- NOTE | 2017-08-18 12:05 | NUR ---
CALLED IRENE FROM [facility] AND INFORMED HER THAT PATIENT LEFT AMA. PHONE [phone].
== END 2017-08-18 10:50 | disposition left against medical advice (07) | DRG 720 ==
LOC: MED 22:33 → MTU 08-03 01:51
PROVIDERS: ADMIT Family Medicine Sports Medicine; ATTEND Family Medicine Sports Medicine
DX: A41.9 Sepsis, unspecified organism (principal); N17.0 Acute kidney failure with tubular necrosis; G82.50 Quadriplegia, unspecified; K56.600 Partial intestinal obstruction, unspecified as to cause; G12.21 Amyotrophic lateral sclerosis; E86.0 Dehydration; I48.91 Unspecified atrial fibrillation; N39.0 Urinary tract infection, site not specified; Z66 Do not resuscitate; R65.20 Severe sepsis without septic shock; E87.6 Hypokalemia; Z99.3 Dependence on wheelchair; I10 Essential (primary) hypertension; E78.5 Hyperlipidemia, unspecified; F41.1 Generalized anxiety disorder; M19.012 Primary osteoarthritis, left shoulder; Z53.21 Procedure and treatment not carried out due to patient leaving prior to being seen by health care provider; Z59.0 Homelessness; Z86.73 Personal history of transient ischemic attack (TIA), and cerebral infarction without residual deficits; Z79.01 Long term (current) use of anticoagulants; Z79.899 Other long term (current) drug therapy; I25.10 Atherosclerotic heart disease of native coronary artery without angina pectoris
CPT/HCPCS: 36415; 71045; 74018; 80048; 80053; 80305; 81001; 83036; 83605; 83735; 83880; 84100; 84436; 84443; 84479; 84484; 85025; 85610; 85730; 87040; 87081; 87086; 93005; 93970; 97110; 97140; 99285; G0482; Q0092